=== PATIENT | female | born 1960 | race African-American/Black ===

== ENCOUNTER 2023-10-07 18:23 | Emergency (ER) | payer BC, SELFPAY ==
[2023-10-07 18:43] VITALS: BP 142/87; PULSE 101; RESP 20; TEMP 36.9; O2SAT 99
--- NOTE | 2023-10-07 19:11 | ED.ANIMALBIT ---
HPI - Animal Bite General Chief Complaint: Animal Bite Stated Complaint: Dog Bite Time Seen by Provider: 10/07/23 19:11 Source: patient, RN notes reviewed and old records reviewed Mode of arrival: ambulatory Limitations: no limitations History of Present Illness HPI narrative: 63-year-old female presents to the [facility] with concerns for a dog bite to the right thigh that occurred today. Patient reports that it was her sister's dog, animal is up-to-date on immunizations. Patient unsure of her last tetanus Related Data Patient tetanus UTD: No Home Medications Medication Instructions Recorded Confirmed ergocalciferol (vitamin D2) 1,250 10/07/23 mcg (50,000 unit) capsule meloxicam 15 mg tablet mg 10/07/23 terbinafine HCl 250 mg tablet mg 10/07/23 Allergies Allergy/AdvReac Type Severity Reaction Status Date / Time lansoprazole Allergy Unknown Verified 05/17/13 15:05 Review of Systems Review of Systems: All systems reviewed & are unremarkable except as noted in HPI and below Constitutional: Constitutional: Reports no additional constitutional complaints Eyes: Eyes: Reports no additional eye complaints ENT: Reports system reviewed and no additional complaints, except as documented Cardiovascular: Cardiovascular: Reports no additional cardiovascular complaints, Denies chest pain and Denies dyspnea Respiratory: Respiratory: Reports no additional respiratory complaints, Denies chest congestion, Denies cough and Denies dyspnea Gastrointestinal: Gastrointestinal: Reports no additional gastrointestinal complaints, Denies abdominal pain, Denies nausea and Denies vomiting Musculoskeletal: Musculoskeletal: Reports no additional musculoskeletal complaints Integumentary/Breasts: Skin/Breast: Reports as per HPI, Reports swelling and Reports wounds Neurologic: Reports system reviewed and no additional complaints, except as documented Psychiatric: Psychiatric: Reports no additional psychiatric complaints Allergic/Immunologic: Allergic/Immunologic: Reports no additional allergic/immunologic complaints PMFSH Comments At the time of my signature, I reviewed and agree with the nursing past medical, surgical, social, and family history. There is no relevant family history pertinent to the patient complaint. Exam Const: General: cooperative, healthy appearing, comfortable, no acute distress, well developed, alert and well nourished Nutritional Appearance: well nourished and obese Orientation/consciousness: patient oriented x3 Limitations: no limitations HENMT: Head: normal to inspection Ears: hearing grossly normal bilaterally and external ears normal Face/Nose/Sinus: Normal external nose present, Normal nares present, Normal nasal mucous membranes and turbinates present, normal facial exam and face symmetric Face and sinus: normal facial exam and face symmetric Eyes: General: appearance normal, both eyes and all related structures Alignment and Position: alignment normal Periorbital: periorbital findings normal Pupils: Equal, round and reactive pupils present EOM: EOMs intact bilaterally Neck: Neck: normal visual inspection, full ROM, no lymphadenopathy and no meningeal signs Chest: Chest palpation & inspection: normal inspection of the chest Resp: Effort & Inspection: normal respiratory effort and able to speak in complete sentences Cardio: Rate: regular rate Skin: General skin exam: normal color and no rashes or lesions noted Lesions: no lesions Rashes: no rashes Full body images: 1. 2 cm abrasion, superficial laceration 2. 1 cm puncture wound 3. Abrasion distal aspect 3rd finger right hand Neuro: General: patient oriented x3, gait normal, tone normal, moves all extremities and no meningeal signs Cranial nerves: Yes Equal, round and reactive pupils present Cognition (Neuro): normal cognition Speech: normal speech Gait exam (Neuro): Normal gait present Extrem: General: normal to inspection,
[2023-10-07] MEDS: TETANUS,DIPHTHERIA,AC PERTUSSIS ADULT (0.5 ML) BOOSTRIX IM (19:29)
== END 2023-10-07 19:45 | disposition home or self-care (01) ==
PROVIDERS: Emergency Provider Nurse Practitioner
DX: S70.311A Abrasion, right thigh, initial encounter (principal); S71.131A Puncture wound without foreign body, right thigh, initial encounter; W54.0XXA Bitten by dog, initial encounter; Z23 Encounter for immunization
CPT/HCPCS: 90471; 90715; 99203; G0463

== ENCOUNTER 2024-09-02 17:00 | Outpatient (CLI) | payer BC, SELFPAY ==
--- OUTSIDE RECORDS SUMMARY | 2024-09-02 17:06 | XMS_ITS | Encounter Summary ---
Author Organization [facility] Address [address] [place] [address] Care Team Providers Care Fire Alarm Operator Name Role Phone Tatyana Cardona DO Primary Care Provider Encounter Details Date Type Department Care Team (Late st Contact Info) Description 06/29/2004 Outpatient Historical HIS [facility] Fely Saavedra MD [address] [place] [address] ROUTINE MEDICAL EXAM (Primary Dx) Social History Tobacco Use Types Packs/Day Years Used Date Smoking Tobacco: Never Assessed Comments Unknown Sex and Gender Information Value Date Recorded Sex Assigned at Female 02/06/2023 4:09 PM GREENHOUSE OR NURSERY TRANSPLANTER Legal Sex Female 4:50 AM GREENHOUSE OR NURSERY TRANSPLANTER Gender Identity Female 02/06/2023 4:09 PM GREENHOUSE OR NURSERY TRANSPLANTER Sexual Orientation Straight 02/06/2023 4: 09 PM GREENHOUSE OR NURSERY TRANSPLANTER documented as of this encounter Plan of Treatment Upcoming Encounters Date Type Department Care Team (Late Contact Info) Description 02/18/2025 1:30 PM GREENHOUSE OR NURSERY TRANSPLANTER Appointment [facility] Family Medicine Jazz [place] [address] [facility] [address] [place] [address] [place] [address] [facility] [address] [place] [address] documented as of this encounter Procedures Procedure Name Priority Date/Time Associated Diagnosis Comments CBC WITH DIFFERENTIAL Routine 06/29/2004 10:49 AM CDT CBC WITH DIFFERENTIAL Routine 06/29/2004 10:49 AM CDT LIPID PANEL Routine 06/29/2004 10:49 AM CDT BASIC METABOLIC PANEL Routine 06/29/2004 10:49 AM CDT documented in this encounter Results * CBC WITH DIFFERENTIAL (06/29/2004 10:49 AM CDT) NEUTROPHILS 64 45 - 70 % INTERFAC E SYSTEM LYMPHOCYTES 23 16 - 45 % INTERFAC E SYSTEM MONOCYTES 9 3 - 13 % INTERFACE SYSTEM EOSINOPHILS 3 0 - 7 % INTERFAC E SYSTEM BASOPHILS 0 0 - 2 % INTERFACE SYSTEM NEUTROPHIL ABSOLUTE 5.31 1.90 - 7.00 K/uL INTERFACE SYSTEM LYMPHOCYTE ABSOLUTE 1.92 0.70 - 4.50 K/uL INTERFACE SYSTEM MONOCYTE ABSOLUTE 0.76 0.10 - 1.30 K/uL INTERFACE SYSTEM EOSINOPHIL ABSOLUTE 0.26 0.00 - 0.70 K/uL INTERFACE SYSTEM BASOPHILS ABSOLUTE 0.03 0.00 - 0.20 K/uL INTERFACE SYSTEM 06/29/2004 10:4 9 AM CDT us Fely Pinto MD HEMATOLOGY ORDERABLES Final R esult INTERFACE SYSTEM Refer to clinic/hospital department * CBC WITH DIFFERENTIAL (06/29/2004 10:49 AM CDT) WBC 8.3 4.0 - 9.8 K/uL INTERFACE SYSTEM RBC 4.60 3.90 - 4.90 M/uL INTERFACE SYSTEM HEMOGLOBIN 12.8 11.8 - 14.8 g/dL INTERFACE SYSTEM HEMATOCRIT 40.2 35.5 - 44.0 % INTERFACE SYSTEM MCV 87.4 82.0 - 99.0 fL INTERFACE SYSTEM MCH 27.8 27.2 - 32.6 pg INTERFACE SYSTEM MCHC 31.8 31.5 - 35.5 % INTERFACE SYSTEM RDW 14.5 11.5 - 14.5 % INTERFACE SYSTEM RDW-STDEV 46.1 37.1 - 48.7 fL INTERFACE SYSTEM PLATELETS 270 140 - 350 K/uL INTERFACE SYSTEM MPV 11.0 9.3 - 12.4 fL INTERFACE SYSTEM 06/29/2004 10:4 9 AM CDT us Fely Pinto MD HEMATOLOGY ORDERABLES Final R esult INTERFACE SYSTEM Refer to clinic/hospital department * LIPID PANEL (06/29/2004 10:49 AM CDT) CHOLESTEROL 159 100 - 199 mg/dL INTERFACE SYSTEM TRIGLYCERIDE 51 10 - 149 mg/dL INTERFACE SYSTEM HDL 58 40 - 59 mg/dL INTERFACE SYSTEM LDL CALCULATED 91 <=99 mg/dL INTERFACE SYSTEM CHOL/HDL RATIO 2.7 2.0 - 5.0 INTER FACE SYSTEM Comment:See interpretive belkys a section for risk classifications. LIPID PANEL COMMENT See below INTERFACE SYSTEM Comment: Adult ATP III Classifications: Cholesterol (mg/dL) Triglyceride (mg/dL) Desirable <200 Normal <150 Borderline 200 - 239 Borderline High 150 - 199 High >=240 High 200 - 499 Very High >=500 HDL Cholesterol (mg/dL) LDL (mg/dL) Low (increased risk) <40 Optimal <100 High (reduced risk) >=60 Near or above optimal 100 - 129 Borderline 130 - 159 High 160 - 189 Very High >=190 LDL calculation is not accurate if Triglycerides are greater than 400 mg /dL Pediatric NCEP Classifications: Cholesterol(<20 years),(mg/dL) Triglyceride Desirable <170 Pediatric classification Borderline 170 - 199 not defined. High >=200 HDL (<5 years) LDL (mg/dL) No Reference Range Established Desirable <110 Borderline 110 - 129 High >=130 06/29/2004 10:4 9 AM CDT us Fely Pinto MD CHEMISTRY ORDERABLES Final Re sult Performing Organization Address [facility] de Phone Number INTERFACE SYSTEM Refer to clinic/hospital department * BASIC METABOLIC PANEL (06/29/2004 10:49 AM CDT) GLUCOSE 90 65 - 109 mg/dL INTERFACE SYSTEM CREATININE 0.8 0.4 - 1.2 mg/dL INTERFACE SYSTEM CALCIUM 9.3 8.6 - 10.2 mg/dL INTERFACE SYSTEM BUN 7 6 - 20 mg/dL INTERFACE SYSTEM SODIUM 136 135 - 145 mmol/L INTERFACE SYSTEM POTASSIUM 3.9 3.5 - 4.9 mmol/L INTERFACE SYSTEM CHLORIDE 100 96 - 108 mmol/L INTERFACE SYSTEM CO2 27 22 - 30 mmol/L INTERFACE SYSTEM 06/29/2004 10:4 9 AM CDT us Fely Pinto MD CHEMISTRY ORDERABLES Final Re vamsi Performing Organization Address [facility] de Phone Number INTERFACE SYSTEM Refer to clinic/hospital department documented in this encounter Visit Diagnoses Diagnosis Routine general medical examination at a health care facility- Primary documented in this encounter Care Teams Fire Alarm Operator Relationship Specialty [place] [address] [facility] [address] [place] [address] PCP - General Family Practice 05/12/21 documented as of this encounter
--- OUTSIDE RECORDS SUMMARY | 2024-09-02 17:06 | XMS_ITS | Encounter Summary ---
Author Organization [facility] Address [address] [place] [address] Care Team Providers Care Montessori Preschool Teacher Name Role Phone Tatyana Cardona DO Primary Care Provider Encounter Details Date Type Department Care Team (Late st Contact Info) Description 09/18/2004 Outpatient Historical [facility] [place] [address] [place] [address] [place] [address] [place] [address] Social History Tobacco Use Types Packs/Day Years Used Date Smoking Tobacco: Never Assessed Comments Unknown Sex and Gender Information Value Date Recorded Sex Assigned at Female 02/06/2023 4:09 PM IDENTIFICATION CLERK Legal Sex Female 4:50 AM IDENTIFICATION CLERK Gender Identity Female 02/06/2023 4:09 PM IDENTIFICATION CLERK Sexual Orientation Straight 02/06/2023 4: 09 PM IDENTIFICATION CLERK documented as of this encounter Plan of Treatment Upcoming Encounters Date Type Department Care Team (Late st Contact Info) Description 02/18/2025 1:30 PM IDENTIFICATION CLERK Appointment [facility] Medicine [place] [address] [place] [address] [place] [address] [place] [address] documented as of this encounter Visit Diagnoses Not on filedocumented in this encounter Care Teams Montessori Preschool Teacher Relationship Specialty [place] [address] [facility] [address] [place] [address] PCP - General Family Practice 05/12/21 documented as of this encounter
--- OUTSIDE RECORDS SUMMARY | 2024-09-02 17:06 | XMS_ITS | Encounter Summary ---
Author Organization [facility] Address [address] [place] [address] Care Team Providers Care Whizzer Operator Name Role Phone Tatyana Cardona DO Primary Care Provider Encounter Details Date Type Department Care Team (Late st Contact Info) Description 09/18/2004 Outpatient Historical [facility] Jazz [place] [address] [place] [address] [place] [address] [place] [address] Social History Tobacco Use Types Packs/Day Years Used Date Smoking Tobacco: Never Assessed Comments Unknown Sex and Gender Information Value Date Recorded Sex Assigned at Female 02/06/2023 4:09 PM RECHECKER Legal Sex Female 4:50 AM RECHECKER Gender Identity Female 02/06/2023 4:09 PM RECHECKER Sexual Orientation Straight 02/06/2023 4: 09 PM RECHECKER documented as of this encounter Plan of Treatment Upcoming Encounters Date Type Department Care Team (Late st Contact Info) Description 02/18/2025 1:30 PM RECHECKER Appointment [facility] Medicine [place] [address] [place] [address] [place] [address] [place] [address] documented as of this encounter Visit Diagnoses Not on filedocumented in this encounter Care Teams Whizzer Operator Relationship Specialty [place] [address] [facility] [address] [place] [address] PCP - General Family Practice 05/12/21 documented as of this encounter
--- OUTSIDE RECORDS SUMMARY | 2024-09-02 17:06 | XMS_ITS | Encounter Summary ---
Author Organization [facility] Address [address] [place] [address] Care Team Providers Care Indirect Sales Representative Name Role Phone Tatyana Cardona DO Primary Care Provider Encounter Details Date Type Department Care Team (Late st Contact Info) Description 03/27/2004 Outpatient Historical [facility] Family Medicine [facility] [address] [facility] [address] [place] [address] [place] [address] [facility] [place] [address] Social History Tobacco Use Types Packs/Day Years Used Date Smoking Tobacco: Never Assessed Comments Unknown Sex and Gender Information Value Date Recorded Sex Assigned at Female 02/06/2023 4:09 PM WAREHOUSE CHECKER Legal Sex Female 4:50 AM WAREHOUSE CHECKER Gender Identity Female 02/06/2023 4:09 PM WAREHOUSE CHECKER Sexual Orientation Straight 02/06/2023 4: 09 PM WAREHOUSE CHECKER documented as of this encounter Last Filed Vital Signs Vital Sign Reading Time Taken Comments Blood Pressure 124/70 03/27/2004 4:30 PM WAREHOUSE CHECKER Pulse 80 03/27/2004 4:30 PM WAREHOUSE CHECKER Temperature - - Respiratory Rate - - Oxygen Saturation - - Inhaled Oxygen Concentration - - Weight 126.6 kg (279 lb) 03/27/2004 4:30 PM WAREHOUSE CHECKER Height 168.9 cm (5' 6.5) 03/27/2004 4:30 PM WAREHOUSE CHECKER Body Mass Index 44.36 03/27/2004 4:30 PM WAREHOUSE CHECKER documented in this encounter Plan of Treatment Upcoming Encounters Date Type Department Care Team (Late st Contact Info) Description 02/18/2025 1:30 PM WAREHOUSE CHECKER Appointment [facility] Medicine [place] [address] [facility] [address] [place] [address] [place] [address] [facility] [address] [place] [address] documented as of this encounter Visit Diagnoses Not on filedocumented in this encounter Care Teams Indirect Sales Representative Relationship Specialty Start [place] [address] [facility] [address] [place] [address] PCP - General Family Practice 05/12/21 documented as of this encounter
--- OUTSIDE RECORDS SUMMARY | 2024-09-02 17:07 | XMS_ITS | Encounter Summary ---
Author Organization [facility] Address [address] [place] [address] Care Team Providers Care Press Operator Automatic Name Role Phone Tatyana Cardona DO Primary Care Provider Encounter Details Date Type Department Care Team (Latest Contact Info) Description 07/16/2001 Outpatient Historical HIS [facility] KASIA Little, MD Tarsha NO ADDRESS ON FILE SCREENING FOR VENERAL DIS (Primary Dx) Social History Tobacco Use Types Packs/Day Years Used Date Smoking Tobacco: Never Assessed Comments Unknown Sex and Gender Information Value Date Recorded Sex Assigned at Female 02/06/2023 4:09 PM COPY CENTER ASSOCIATE Legal Sex Female 4:50 AM COPY CENTER ASSOCIATE Gender Identity Female 02/06/2023 4:09 PM COPY CENTER ASSOCIATE Sexual Orientation Straight 02/06/2023 4: 09 PM COPY CENTER ASSOCIATE documented as of this encounter Plan of Treatment Upcoming Encounters Date Type Department Care Team (Late st Contact Info) Description 02/18/2025 1:30 PM COPY CENTER ASSOCIATE Appointment [facility] Family Medicine Jazz [place] [address] [facility] [address] [place] [address] [place] [address] [address] [facility] [address] [place] [address] documented as of this encounter Visit Diagnoses Diagnosis Screening examination for venereal disease- Primary documented in this encounter Care Teams Press Operator Automatic Relationship Specialty [place] [address] [facility] [address] [place] [address] PCP - General Family Practice 05/12/21 documented as of this encounter
--- OUTSIDE RECORDS SUMMARY | 2024-09-02 17:07 | XMS_ITS | Encounter Summary ---
Author Organization [facility] Address [address] [place] [address] Care Team Providers Care Community Education Coordinator Name Role Phone Tatyana Cardona DO Primary Care Provider Encounter Details Date Type Department Care Team (Latest Contact Info) Description 07/21/2001 Outpatient Historical HIS [facility] KASIA Little, MD [place] NO ADDRESS ON FILE ABDOMINAL PAIN UNSPEC SITE (Primary Dx) Social History Tobacco Use Types Packs/Day Years Used Date Smoking Tobacco: Never Assessed Comments Unknown Sex and Gender Information Value Date Recorded Sex Assigned at Female 02/06/2023 4:09 PM LEAD MAN OVER ALL DIES IN PATTERN SHOP Legal Sex Female 4:50 AM LEAD MAN OVER ALL DIES IN PATTERN SHOP Gender Identity Female 02/06/2023 4:09 PM LEAD MAN OVER ALL DIES IN PATTERN SHOP Sexual Orientation Straight 02/06/2023 4: 09 PM LEAD MAN OVER ALL DIES IN PATTERN SHOP documented as of this encounter Plan of Treatment Upcoming Encounters Date Type Department Care Team (Late st Contact Info) Description 02/18/2025 1:30 PM LEAD MAN OVER ALL DIES IN PATTERN SHOP Appointment [facility] Family Medicine Jazz [place] [address] [facility] [address] [place] [address] [place] [address] [address] [facility] [address] [place] [address] documented as of this encounter Visit Diagnoses Diagnosis Abdominal pain, unspecified site- Primary documented in this encounter Care Teams Community Education Coordinator Relationship Specialty [place] [address] [facility] [address] [place] [address] PCP - General Family Practice 05/12/21 documented as of this encounter
--- OUTSIDE RECORDS SUMMARY | 2024-09-02 17:07 | XMS_ITS | Encounter Summary ---
Author Organization [facility] Address [address] [facility] Attn: Epic Prelude ADT DEWAYNE ACOSTA [address] Care Team Providers Care Student Services Counselor Name Role Phone Tatyana Cardona DO Primary Care Provider Encounter Details Date Type Department Care Team (Latest Contact Info) Description 05/28/2005 Orders Only Fely Pinto MD [address] [place] [address] Social History Tobacco Use Types Packs/Day Years Used Date Smoking Tobacco: Never Assessed Comments Unknown Sex and Gender Information Value Date Recorded Sex Assigned at Female 02/06/2023 4:09 PM AUSTRALIAN RULES FOOTBALLER Legal Sex Female 4:50 AM AUSTRALIAN RULES FOOTBALLER Gender Identity Female 02/06/2023 4:09 PM AUSTRALIAN RULES FOOTBALLER Sexual Orientation Straight 02/06/2023 4: 09 PM AUSTRALIAN RULES FOOTBALLER documented as of this encounter Progress Notes * Interface, Suresh Pennington Conv Transcriptions - 11/21/2007 1:31 AM CDT TIME:01:47 pm PATIENT`S HOME PHONE: PATIENT`S WORK PHONE: PATIENT`S INSURANCE: [facility] B[employer]EFIT ADMINISTRATORS WHO TOOK THE CALL: Laura Hahn A GENERAL INFORMATION PCP: Blair. ALTERNATIVE PHONE NUMBER: [phone] (cell) WHO CALLED: Patient called. PHARMACY NUMBER: [phone] SECTION 1: REQUESTED ACTION neri 05/28/05 at 01:48 pm: MEDICATION REQUEST: Would like a script for Patanol for allergies, take Zyrtec-D DOCTOR`S RESPONSE: jayjay 05/28/05 at 02:20 pm Juanita - please call this in and let pt know. Thanks. -lks MEDICATIONS: Call in to Pharmacy ZYRTEC-D ORAL TABLET 12 HR 5-120 MG TABLETS, one twice a day from processing specialist, 30 Dispensed, 2 Fills,30 Duration/Days Supply, status: CONTINUED, 05/28/2005. PATANOL OPHTHALMIC SOLUTION 0.1 %, 1-2 gtt per eye BID PRN, 1 Dispensed, 2 Fills, 30 Duration/Days Supply, status: NEW PRESCRIPTION, 05/28/2005. FINAL ACTION: anna 05/28/05 at 02:45 pm Spoke with patient 05/28/05 at 02:46 pm. kyle Mariee Called pharmacy at 05/28/05 at 02:45 pm. Electronically Signed by: Jaylene Hazel MA on Saturday, May 28, 2005 documented in this encounter Plan of Treatment Upcoming Encounters Date Type Department Care Team (Late st Contact Info) Description 02/18/2025 1:30 PM AUSTRALIAN RULES FOOTBALLER Appointment [facility] Medicine Jazz Erwin [address] [address] [facility] [address] [place] [address] [place] [address] [address] [facility] [address] [place] [address] documented as of this encounter Visit Diagnoses Not on filedocumented in this encounter Care Teams Student Services Counselor Relationship Specialty Start [place] [address] [address] [place] [address] PCP - General Family Practice 05/12/21 documented as of this encounter
--- OUTSIDE RECORDS SUMMARY | 2024-09-02 17:07 | XMS_ITS | Encounter Summary ---
Author Organization [facility] Address [address] [place] [address] Care Team Providers Care Laser Print Operator Name Role Phone Tatyana Cardona DO Primary Care Provider Encounter Details Date Type Department Care Team (Latest Contact Info) Description 07/23/2000 Outpatient Historical HIS [facility] KASIA Little, MD [place] NO ADDRESS ON FILE Other screening mammogram (Primary Dx) Social History Tobacco Use Types Packs/Day Years Used Date Smoking Tobacco: Never Assessed Comments Unknown Sex and Gender Information Value Date Recorded Sex Assigned at Female 02/06/2023 4:09 PM RESPIRATORY CARE INSTRUCTOR Legal Sex Female 4:50 AM RESPIRATORY CARE INSTRUCTOR Gender Identity Female 02/06/2023 4:09 PM RESPIRATORY CARE INSTRUCTOR Sexual Orientation Straight 02/06/2023 4: 09 PM RESPIRATORY CARE INSTRUCTOR documented as of this encounter Plan of Treatment Upcoming Encounters Date Type Department Care Team (Late st Contact Info) Description 02/18/2025 1:30 PM RESPIRATORY CARE INSTRUCTOR Appointment [facility] Family Medicine Jazz [place] [address] [facility] [address] [place] [address] [place] [address] ASSURED INFORMATION SECURITY [facility] [address] [place] [address] documented as of this encounter Visit Diagnoses Diagnosis Other screening mammogram- Primary documented in this encounter Care Teams Laser Print Operator Relationship Specialty Start [place] [address] [facility] [address] [place] [address] PCP - General Family Practice 05/12/21 documented as of this encounter
--- OUTSIDE RECORDS SUMMARY | 2024-09-02 17:07 | XMS_ITS | Encounter Summary ---
Author Organization [facility] Address [address] [place] [address] Care Team Providers Care Extension Course Counselor Name Role Phone Tatyana Cardona DO Primary Care Provider Encounter Details Date Type Department Care Team (Late st Contact Info) Description 03/02/2003 Outpatient Historical [facility] Medicine Jazz Hood [address] [place] [address] Balwinder Venegas Social History Tobacco Use Types Packs/Day Years Used Date Smoking Tobacco: Never Assessed Comments Unknown Sex and Gender Information Value Date Recorded Sex Assigned at Female 02/06/2023 4:09 PM STONE HAND Legal Sex Female 4:50 AM STONE HAND Gender Identity Female 02/06/2023 4:09 PM STONE HAND Sexual Orientation Straight 02/06/2023 4: 09 PM STONE HAND documented as of this encounter Plan of Treatment Upcoming Encounters Date Type Department Care Team (Late st Contact Info) Description 02/18/2025 1:30 PM STONE HAND Appointment [facility] Medicine Jazz Hood [address] [place] [address] [place] [address] [place] [address] documented as of this encounter Visit Diagnoses Not on filedocumented in this encounter Care Teams Extension Course Counselor Relationship Specialty [place] [address] [facility] [address] [place] [address] PCP - General Family Practice 05/12/21 documented as of this encounter
--- OUTSIDE RECORDS SUMMARY | 2024-09-02 17:07 | XMS_ITS | Encounter Summary ---
Author Organization [facility] Address [address] [place] [address] Care Team Providers Care Manager Strategic Alliances Name Role Phone Tatyana Cardona DO Primary Care Provider Encounter Details Date Type Department Care Team (Late st Contact Info) Description 03/05/2002 Outpatient Historical [facility] Medicine Kimmell Erwin [address] [place] [address] [place] [address] [place] [address] Social History Tobacco Use Types Packs/Day Years Used Date Smoking Tobacco: Never Assessed Comments Unknown Sex and Gender Information Value Date Recorded Sex Assigned at Female 02/06/2023 4:09 PM HOSPITALIST NOCTURNIST PHYSICIAN Legal Sex Female 4:50 AM HOSPITALIST NOCTURNIST PHYSICIAN Gender Identity Female 02/06/2023 4:09 PM HOSPITALIST NOCTURNIST PHYSICIAN Sexual Orientation Straight 02/06/2023 4: 09 PM HOSPITALIST NOCTURNIST PHYSICIAN documented as of this encounter Plan of Treatment Upcoming Encounters Date Type Department Care Team (Late st Contact Info) Description 02/18/2025 1:30 PM HOSPITALIST NOCTURNIST PHYSICIAN Appointment [facility] Medicine Kimmell Erwin [address] [place] [address] [place] [address] [facility] [address] [place] [phone] documented as of this encounter Visit Diagnoses Not on filedocumented in this encounter Care Teams Manager Strategic Alliances Relationship Specialty Start [place] [address] [facility] [address] [place] [address] PCP - General Family Practice 05/12/21 documented as of this encounter
--- OUTSIDE RECORDS SUMMARY | 2024-09-02 17:07 | XMS_ITS | Encounter Summary ---
Author Organization [facility] Address [address] [place] [address] Care Team Providers Care Golf Cart Attendant Name Role Phone Tatyana Cardona DO Primary Care Provider Encounter Details Date Type Department Care Team (Late st Contact Info) Description 10/01/2002 Outpatient Historical [facility] Medicine [facility] [address] [facility] [address] [place] [address] [place] [address] [place] [address] Social History Tobacco Use Types Packs/Day Years Used Date Smoking Tobacco: Never Assessed Comments Unknown Sex and Gender Information Value Date Recorded Sex Assigned at Female 02/06/2023 4:09 PM TROUBLE LOCATER Legal Sex Female 4:50 AM TROUBLE LOCATER Gender Identity Female 02/06/2023 4:09 PM TROUBLE LOCATER Sexual Orientation Straight 02/06/2023 4: 09 PM TROUBLE LOCATER documented as of this encounter Plan of Treatment Upcoming Encounters Date Type Department Care Team (Late Contact Info) Description 02/18/2025 1:30 PM TROUBLE LOCATER Appointment [facility] [address] [place] [address] [place] [address] [facility] [address] [place] [address] documented as of this encounter Visit Diagnoses Not on filedocumented in this encounter Care Teams Golf Cart Attendant Relationship Specialty [place] [address] [facility] [address] [place] [address] PCP - General Family Practice 05/12/21 documented as of this encounter
--- OUTSIDE RECORDS SUMMARY | 2024-09-02 17:07 | XMS_ITS | Encounter Summary ---
Author Organization [facility] Address [address] [place] [address] Care Team Providers Care Cut In Station Operator Name Role Phone Tatyana Cardona DO Primary Care Provider [phone] Encounter Details Date Type Department Care Team (Latest Contact Info) Description 08/22/2006 Outpatient Historical [facility] Chip Zaragoza MD Calculus of GB w/ Acute Cyst (Primary Dx) Social History Tobacco Use Types Packs/Day Years Used Date Smoking Tobacco: Never Assessed Comments Unknown Sex and Gender Information Value Date Recorded Sex Assigned at Female 02/06/2023 4:09 PM REPRODUCTION ORDER PROCESSOR Legal Sex Female 4:50 AM REPRODUCTION ORDER PROCESSOR Gender Identity Female 02/06/2023 4:09 PM REPRODUCTION ORDER PROCESSOR Sexual Orientation Straight 02/06/2023 4: 09 PM REPRODUCTION ORDER PROCESSOR documented as of this encounter Plan of Treatment Upcoming Encounters Date Type Department Care Team (Late st Contact Info) Description 02/18/2025 1:30 PM REPRODUCTION ORDER PROCESSOR Appointment [facility] Family Medicine Jazz Hood [address] [facility] [address] [place] [address] [place] [address] [address] [facility] [address] [place] [address] documented as of this encounter Procedures Procedure Name Priority Date/Time Associated Diagnosis Comments HCG QUANTITATIVE, BLOOD Routine 08/22/2006 11:16 AM CDT HEMOGLOBIN AND HEMATOCRIT Routine 08/21/2006 1:30 PM CDT documented in this encounter Results * BETA HCG QUANTITATIVE, BLOOD (08/22/2006 11:16 AM CDT) HCG QUANT, BLOOD <5 0 - 5 mIU/mL INTERFACE SYSTEM Comment: Result of 5 - 25 mIU/mL is indeterminant for , repeat of test recommemded in 48 hours. Reference Range: Gestational Age: 3 Weeks 5.8 - 71.2 mIU/mL 4 Weeks 9.5 - 750 mIU/mL 5 Weeks 217 - 7138 mIU/mL 6 Weeks 158 - 31,795 mIU/mL 7 Weeks 3697 - 163,563 mIU/mL 8 Weeks 32,065 - 149,571 mIU/mL 9 Weeks 63,803 - 151,410 mIU/mL 10 Weeks 46,509 - 186,977 mIU/mL 12 Weeks 27,832 - 210,612 mIU/mL 14 Weeks 13,950 - 62,530 mIU/mL 15 Weeks 12,039 - 70,971 mIU/mL 16 Weeks 9040 - 56,451 mIU/mL 17 Weeks 8175 - 55,868 mIU/mL 18 Weeks 8099 - 58,176 mIU/mL Heterophile antibodies and other interfering substances in the serum of some patients may cause a false-positive result in this assay. Before making a diagnosis of malignancy or etopic ,the result of this test should be confirmed with a urine HCG test and correlated with other clinical evidence. 08/22/2006 11:1 6 AM CDT us Chip Zaragoza MD CHEMISTRY ORDERABLES Edited INTERFACE SYSTEM Refer to clinic/hospital department * HEMOGLOBIN AND HEMATOCRIT (08/21/2006 1:30 PM CDT) HEMOGLOBIN 13.4 11.8 - 14.8 g/dL INTERFACE SYSTEM HEMATOCRIT 39.5 35.5 - 44.0 % INTERFACE SYSTEM 08/21/2006 1:30 PM CDT us Chip Zaragoza MD HEMATOLOGY ORDERABLES Edited INTERFACE SYSTEM Refer to clinic/hospital department documented in this encounter Visit Diagnoses Diagnosis Calculus of gallbladder with acute cholecystitis, without mention of obstruction- Primary documented in this encounter Care Teams Cut In Station Operator Relationship Specialty [place] [address] [facility] [address] [place] [address] PCP - General Family Practice 05/12/21 documented as of this encounter
--- OUTSIDE RECORDS SUMMARY | 2024-09-02 17:07 | XMS_ITS | Encounter Summary ---
Author Organization [facility] Address [address] [place] [address] Care Team Providers Care Vp Packaging Name Role Phone Tatyana Cardona DO Primary Care Provider Encounter Details Date Type Department Care Team (Late st Contact Info) Description 10/03/2001 Outpatient Historical [facility] DEPT OF [place] [address] [place] [address] Social History Tobacco Use Types Packs/Day Years Used Date Smoking Tobacco: Never Assessed Comments Unknown Sex and Gender Information Value Date Recorded Sex Assigned at Female 02/06/2023 4:09 PM MOBILE APPLICATION TESTER Legal Sex Female 4:50 AM MOBILE APPLICATION TESTER Gender Identity Female 02/06/2023 4:09 PM MOBILE APPLICATION TESTER Sexual Orientation Straight 02/06/2023 4: 09 PM MOBILE APPLICATION TESTER documented as of this encounter Plan of Treatment Upcoming Encounters Date Type Department Care Team (Late st Contact Info) Description 02/18/2025 1:30 PM MOBILE APPLICATION TESTER Appointment [facility] Family Medicine Jazz Hood [address] [place] [address] [place] [address] [place] [address] documented as of this encounter Visit Diagnoses Not on filedocumented in this encounter Care Teams Vp Packaging Relationship Specialty [place] [address] [address] PCP - General Family Practice 05/12/21 documented as of this encounter
--- OUTSIDE RECORDS SUMMARY | 2024-09-02 17:07 | XMS_ITS | Encounter Summary ---
Author Organization [facility] Address [address] [place] [address] Care Team Providers Care Lace Burn Out Tender Name Role Phone Tatyana Cardona DO Primary Care Provider Encounter Details Date Type Department Care Team (Late st Contact Info) Description 05/23/[address] [facility] [place] [address] [place] [address] [place] [address] [place] [address] Social History Tobacco Use Types Packs/Day Years Used Date Smoking Tobacco: Never Assessed Comments Unknown Sex and Gender Information Value Date Recorded Sex Assigned at Female 02/06/2023 4:09 PM OPERATING ROOM MANAGER Legal Sex Female 4:50 AM OPERATING ROOM MANAGER Gender Identity Female 02/06/2023 4:09 PM OPERATING ROOM MANAGER Sexual Orientation Straight 02/06/2023 4: 09 PM OPERATING ROOM MANAGER documented as of this encounter Plan of Treatment Upcoming Encounters Date Type Department Care Team (Late st Contact Info) Description 02/18/2025 1:30 PM OPERATING ROOM MANAGER Appointment [facility] Medicine [place] Erwin [address] [place] [address] [place] [address] [place] [address] documented as of this encounter Visit Diagnoses Not on filedocumented in this encounter Care Teams Lace Burn Out Tender Relationship Specialty [place] [address] [address] [facility] [address] [place] [address] PCP - General Family Practice 05/12/21 documented as of this encounter
--- OUTSIDE RECORDS SUMMARY | 2024-09-02 17:07 | XMS_ITS | Encounter Summary ---
Author Organization [facility] Address [address] [place] [address] Care Team Providers Care Valve Inspector Name Role Phone Tatyana Cardona DO Primary Care Provider Encounter Details Date Type Department Care Team (Latest Contact Info) Description 08/15/2001 Outpatient Historical [facility] KASIA Little, MD Tarsha NO ADDRESS ON FILE SCREENING MAMM-MAILG NEOPL-OTHER (Primary Dx) Social History Tobacco Use Types Packs/Day Years Used Date Smoking Tobacco: Never Assessed Comments Unknown Sex and Gender Information Value Date Recorded Sex Assigned at Female 02/06/2023 4:09 PM PREFORM MACHINE OPERATOR Legal Sex Female 4:50 AM PREFORM MACHINE OPERATOR Gender Identity Female 02/06/2023 4:09 PM PREFORM MACHINE OPERATOR Sexual Orientation Straight 02/06/2023 4: 09 PM PREFORM MACHINE OPERATOR documented as of this encounter Plan of Treatment Upcoming Encounters Date Type Department Care Team (Late st Contact Info) Description 02/18/2025 1:30 PM PREFORM MACHINE OPERATOR Appointment [facility] Family Medicine Jazz Hood [address] [facility] [address] [place] [address] [place] [address] [address] [facility] [address] [place] [address] documented as of this encounter Visit Diagnoses Diagnosis Other screening mammogram- Primary documented in this encounter Care Teams Valve Inspector Relationship Specialty [place] [address] [facility] [address] [place] [address] PCP - General Family Practice 05/12/21 documented as of this encounter
--- OUTSIDE RECORDS SUMMARY | 2024-09-02 17:07 | XMS_ITS | Encounter Summary ---
Author Organization [facility] Address [address] [place] [address] Care Team Providers Care Food Checkers And Cashiers Supervisor Name Role Phone Tatyana Cardona DO Primary Care Provider [phone] Encounter Details Date Type Department Care Team (Late st Contact Info) Description 07/16/2001 Outpatient Historical [facility] DEPT OF [place] [address] [place] [address] Social History Tobacco Use Types Packs/Day Years Used Date Smoking Tobacco: Never Assessed Comments Unknown Sex and Gender Information Value Date Recorded Sex Assigned at Female 02/06/2023 4:09 PM ASSISTANT ATHLETIC TRAINER Legal Sex Female 4:50 AM ASSISTANT ATHLETIC TRAINER Gender Identity Female 02/06/2023 4:09 PM ASSISTANT ATHLETIC TRAINER Sexual Orientation Straight 02/06/2023 4: 09 PM ASSISTANT ATHLETIC TRAINER documented as of this encounter Plan of Treatment Upcoming Encounters Date Type Department Care Team (Late st Contact Info) Description 02/18/2025 1:30 PM ASSISTANT ATHLETIC TRAINER Appointment [facility] Family Medicine Jazz Hood [address] [facility] [address] [place] [address] [place] [address] [facility] [address] [place] [address] documented as of this encounter Visit Diagnoses Not on filedocumented in this encounter Care Teams Food Checkers And Cashiers Supervisor Relationship Specialty [place] [address] [address] PCP - General Family Practice 05/12/21 documented as of this encounter
--- OUTSIDE RECORDS SUMMARY | 2024-09-02 17:07 | XMS_ITS | Encounter Summary ---
Author Organization [facility] Address [address] [place] [address] Care Team Providers Care Groundwater Consultant Name Role Phone Tatyana Cardona DO Primary Care Provider Encounter Details Date Type Department Care Team (Late st Contact Info) Description 07/08/2006 Outpatient Historical [facility] Priti Mahmood MD [address] [facility] [place] [address] Social History Tobacco Use Types Packs/Day Years Used Date Smoking Tobacco: Never Assessed Comments Unknown Sex and Gender Information Value Date Recorded Sex Assigned at Female 02/06/2023 4:09 PM BUYING INTERN Legal Sex Female 4:50 AM BUYING INTERN Gender Identity Female 02/06/2023 4:09 PM BUYING INTERN Sexual Orientation Straight 02/06/2023 4: 09 PM BUYING INTERN documented as of this encounter Plan of Treatment Upcoming Encounters Date Type Department Care Team (Late st Contact Info) Description 02/18/2025 1:30 PM BUYING INTERN Appointment [facility] Family Medicine Jazz Hood [address] [facility] [address] [place] [address] [place] [address] [address] [facility] [address] [place] [address] documented as of this encounter Visit Diagnoses Not on filedocumented in this encounter Care Teams Groundwater Consultant Relationship Specialty [place] [address] [address] PCP - General Family Practice 05/12/21 documented as of this encounter
--- OUTSIDE RECORDS SUMMARY | 2024-09-02 17:07 | XMS_ITS | Encounter Summary ---
Author Organization [facility] Address [address] [place] [address] Care Team Providers Care General Maintenance Helper Name Role Phone Tatyana Cardona DO Primary Care Provider Encounter Details Date Type Department Care Team (Late st Contact Info) Description 05/23/2006 Outpatient Historical [facility] [place] [address] [place] [address] [place] [address] [place] [address] Social History Tobacco Use Types Packs/Day Years Used Date Smoking Tobacco: Never Assessed Comments Unknown Sex and Gender Information Value Date Recorded Sex Assigned at Female 02/06/2023 4:09 PM FINANCIAL SALES ASSOCIATE Legal Sex Female 4:50 AM FINANCIAL SALES ASSOCIATE Gender Identity Female 02/06/2023 4:09 PM FINANCIAL SALES ASSOCIATE Sexual Orientation Straight 02/06/2023 4: 09 PM FINANCIAL SALES ASSOCIATE documented as of this encounter Plan of Treatment Upcoming Encounters Date Type Department Care Team (Late st Contact Info) Description 02/18/2025 1:30 PM FINANCIAL SALES ASSOCIATE Appointment [facility] Medicine [place] [address] [place] [address] [place] [address] [place] [address] documented as of this encounter Visit Diagnoses Not on filedocumented in this encounter Care Teams General Maintenance Helper Relationship Specialty Start [place] [address] [address] [facility] [address] [place] [address] PCP - General Family Practice 05/12/21 documented as of this encounter
--- OUTSIDE RECORDS SUMMARY | 2024-09-02 17:07 | XMS_ITS | Encounter Summary ---
Author Organization [facility] Address [address] [place] [address] Care Team Providers Care Associate Professor Of Philosophy Name Role Phone Tatyana Cardona DO Primary Care Provider Encounter Details Date Type Department Care Team (Late st Contact Info) Description 05/31/2006 Outpatient Historical [facility] [address] [facility] [place] [address] Calculus of GB w/o Cystitis/Obst (Primary Dx) Social History Tobacco Use Types Packs/Day Years Used Date Smoking Tobacco: Never Assessed Comments Unknown Sex and Gender Information Value Date Recorded Sex Assigned at Female 02/06/2023 4:09 PM SEO ASSOCIATE Legal Sex Female 4:50 AM SEO ASSOCIATE Gender Identity Female 02/06/2023 4:09 PM SEO ASSOCIATE Sexual Orientation Straight 02/06/2023 4: 09 PM SEO ASSOCIATE documented as of this encounter Plan of Treatment Upcoming Encounters Date Type Department Care Team (Late st Contact Info) Description 02/18/2025 1:30 PM SEO ASSOCIATE Appointment [facility] Medicine Jazz Hood [address] [facility] [address] [place] [address] [place] [address] [employer] [facility] [address] [place] [address] documented as of this encounter Visit Diagnoses Diagnosis Calculus of gallbladder without mention of cholecystitis or obstruction- Primary documented in this encounter Care Teams Associate Professor Of Philosophy Relationship Specialty [place] [address] [facility] [address] [place] [address] PCP - General Family Practice 05/12/21 documented as of this encounter
--- OUTSIDE RECORDS SUMMARY | 2024-09-02 17:07 | XMS_ITS | Encounter Summary ---
Author Organization [facility] Address [address] [place] [address] Care Team Providers Care Concrete Stone Fabricating Supervisor Name Role Phone Tatyana Cardona DO Primary Care Provider [phone] Encounter Details Date Type Department Care Team (Late st Contact Info) Description 09/20/2003 Outpatient Historical [facility] Medicine [facility] [address] [address] [facility] [address] [place] [address] [place] [address] [address] [place] [address] Social History Tobacco Use Types Packs/Day Years Used Date Smoking Tobacco: Never Assessed Comments Unknown Sex and Gender Information Value Date Recorded Sex Assigned at Female 02/06/2023 4:09 PM SERVICE UNIT OPERATOR Legal Sex Female 4:50 AM SERVICE UNIT OPERATOR Gender Identity Female 02/06/2023 4:09 PM SERVICE UNIT OPERATOR Sexual Orientation Straight 02/06/2023 4: 09 PM SERVICE UNIT OPERATOR documented as of this encounter Plan of Treatment Upcoming Encounters Date Type Department Care Team (Late Contact Info) Description 02/18/2025 1:30 PM SERVICE UNIT OPERATOR Appointment [facility] [address] [place] [address] [place] [address] [facility] [address] [place] [address] documented as of this encounter Visit Diagnoses Not on filedocumented in this encounter Care Teams Concrete Stone Fabricating Supervisor Relationship Specialty [place] [address] [facility] [address] [place] [address] PCP - General Family Practice 05/12/21 documented as of this encounter
--- OUTSIDE RECORDS SUMMARY | 2024-09-02 17:07 | XMS_ITS | Encounter Summary ---
Author Organization [facility] Address [address] [place] [address] Care Team Providers Care Sales Performance Analyst Name Role Phone Tatyana Cardona DO Primary Care Provider Encounter Details Date Type Department Care Team (Late st Contact Info) Description 07/16/2001 Outpatient Historical [facility] KASIA Little, MD Tarsha NO ADDRESS ON FILE Social History Tobacco Use Types Packs/Day Years Used Date Smoking Tobacco: Never Assessed Comments Unknown Sex and Gender Information Value Date Recorded Sex Assigned at Female 02/06/2023 4:09 PM CELLOPHANER Legal Sex Female 4:50 AM CELLOPHANER Gender Identity Female 02/06/2023 4:09 PM CELLOPHANER Sexual Orientation Straight 02/06/2023 4: 09 PM CELLOPHANER documented as of this encounter Plan of Treatment Upcoming Encounters Date Type Department Care Team (Late st Contact Info) Description 02/18/2025 1:30 PM CELLOPHANER Appointment [facility] Medicine Jazz Hood [address] [facility] [address] [place] [address] [place] [address] [address] [facility] [address] [place] [address] documented as of this encounter Visit Diagnoses Not on filedocumented in this encounter Care Teams Sales Performance Analyst Relationship Specialty Start [place] [address] [facility] [address] [place] [address] PCP - General Family Practice 05/12/21 documented as of this encounter
--- OUTSIDE RECORDS SUMMARY | 2024-09-02 17:07 | XMS_ITS | Encounter Summary ---
Author Organization [facility] Address [address] [place] [address] Care Team Providers Care Crime Scene Technician Name Role Phone Tatyana Cardona DO Primary Care Provider Encounter Details Date Type Department Care Team (Late st Contact Info) Description 05/20/2001 Outpatient Historical HIS [facility] DEPT OF [place] [address] [place] [address] Social History Tobacco Use Types Packs/Day Years Used Date Smoking Tobacco: Never Assessed Comments Unknown Sex and Gender Information Value Date Recorded Sex Assigned at Female 02/06/2023 4:09 PM ORTHOPAEDIC TECHNOLOGIST Legal Sex Female 4:50 AM ORTHOPAEDIC TECHNOLOGIST Gender Identity Female 02/06/2023 4:09 PM ORTHOPAEDIC TECHNOLOGIST Sexual Orientation Straight 02/06/2023 4: 09 PM ORTHOPAEDIC TECHNOLOGIST documented as of this encounter Plan of Treatment Upcoming Encounters Date Type Department Care Team (Late st Contact Info) Description 02/18/2025 1:30 PM ORTHOPAEDIC TECHNOLOGIST Appointment [facility] Family Medicine [place] [address] [place] [address] [place] [address] [address] [place] [address] documented as of this encounter Visit Diagnoses Not on filedocumented in this encounter Care Teams Crime Scene Technician Relationship Specialty [place] [address] [address] PCP - General Family Practice 05/12/21 documented as of this encounter
--- OUTSIDE RECORDS SUMMARY | 2024-09-02 17:07 | XMS_ITS | Encounter Summary ---
Author Organization [facility] Address [address] Attn: Epic Prelude ADT [place] [address] Care Team Providers Care Drafter Marine Name Role Phone RomariocathyTatyana DO Primary Care Provider [phone] Encounter Details Date Type Department Care Team (Latest Contact Info) Description 05/23/2006 Orders Only Priti Mahmood MD [address] [facility] EMERGENCY ROOM [place] [address] Social History Tobacco Use Types Packs/Day Years Used Date Smoking Tobacco: Never Assessed Comments Unknown Sex and Gender Information Value Date Recorded Sex Assigned at Female 02/06/2023 4:09 PM PHOTOGRAVURE PRESS OPERATOR Legal Sex Female 4:50 AM PHOTOGRAVURE PRESS OPERATOR Gender Identity Female 02/06/2023 4:09 PM PHOTOGRAVURE PRESS OPERATOR Sexual Orientation Straight 02/06/2023 4: 09 PM PHOTOGRAVURE PRESS OPERATOR documented as of this encounter Progress Notes * Priti Mahmood MD - 07/03/2007 2:55 PM CDT NURSE NAME: Del Cruz C WEIGHT: 282lbs. BLOOD PRESSURE: 112/68. Right Arm Sitting PULSE: 85. Right Radial, Regular TEMPERATURE: 97.9??f. Oral HEIGHT: 5ft7 1/4in. ALLERGIES: Allergies are as listed. CHIEF COMPLAINT Seen for a preventive examination. Sindhu HISTORY: Here for hmv.. lmp may 01. Concerned about dysuria for one day, denies vaginal dc. Also concerned about chronic knee pain in the left knee. Pain is dull, achy, moderate and worse when she sits for a long period of time. At that point the knee feels stiff. CURRENT MEDICATION LIST: LIDEX-E EXTERNAL CREAME 0.05 %, APPLY TWICE DAILY ALBUTEROL INHALATION AEROSOL SOLUTION 90 MCG/ACT, From sewing machine repairer SINGULAIR ORAL TABLET 10 MG, one a day from sewing machine repairer NECON (28) ORAL TABLET 1-35 MG-MCG, one per day from Dr. Garcia FLONASE NASAL SUSPENSION 50 MCG/ACT, May substitute another nasal steroid with a lower copay one puff in each nostril once a day ZYRTEC-D ORAL TABLET 12 HR 5-120 MG, one twice a day from sewing machine repairer PATANOL OPHTHALMIC SOLUTION 0.1 %, 1-2 gtt per eye BID PRN CLOBETASOL PROPIONATE EXTERNAL SOLUTION 0.05 %, as per derm CURRENT ALLERGY LIST: PREVACID ROS: GENERAL: Normal activity and energy level, no change in appetite. No major weight gain or loss. No malaise, chills, fever, diaphoresis.. ENT: No hearing loss, epistaxis, hoarseness or dysphagia. No sinus congestion.. ENDOCRINE: No heat or cold intolerance, no excessive thirst.. CARDIAC: No chest pain, palpitations, orthopnea, dyspnea on exertion, or paroxysmal nocturnal dyspnea.. RESPIRATORY: No dyspnea, cough, hemoptysis or wheezing.. : No frequency, urgency, hematuria or dysuria.. GI: . ruq abd pain occasionally, has previous diagnosis of gallstones. PAST MEDICAL HISTORY: MEDICAL: Pt states gallstones since 2003, no gb surgery CURRENT MEDICATIONS: Patient is currently on no medication.zyrtec d, singulair, necon, albuteol- uses once, per week, MVI FAMILY HISTORY: MOTHER: Illnesses: Diabetes, hypertension. SOCIAL HISTORY: MARITAL HISTORY: Single. TOBACCO USE: Has no significant smoking history. OCCUPATION: Teacher. EXERCISES: The patient exercises. just started curves DIET: Follows a weight reduction diet, low carbohydrate. PHYSICAL EXAMINATION: CONSTITUTIONAL: GENERAL APPEARANCE: Healthy appearing patient in no distress. EYES: CONJUNCTIVAE/LIDS: Conjunctivae and lids appear normal. EARS, NOSE, MOUTH AND THROAT: EARS: Tympanic membranes shiny without retraction. Canals unremarkable. Hearing grossly normal. NOSE (AND SINUS): No abnormality of the nose or sinuses is noted. ORAL: Inspection of gums, lips, palate, and teeth normal. No scars, lesions, or masses. Oral mucosaunremarkable with non-inflamed posterior pharynx. NECK/THYROID: Trachea midline. No thyroid enlargement, tenderness, or mass. No supraclavicular or cervical adenopathy. RESPIRATORY: Clear to auscultation and percussion. Normal respiratory effort. CARDIOVASCULAR: CARDIAC: Regular rhythm. No murmurs, rubs, or gallops. ARTERIAL: No aortic bruits. EDEMA/VARICOSITIES OF EXTREMITIES: No edema or varicosities. GASTROINTESTINAL: ABDOMEN: Soft, non-tender, without masses. Bowel sounds active. LIVER/SPLEEN/KIDNEY: No hepatosplenomegaly, tenderness or nodularity. Kidneys not palpable. MUSCULOSKELETAL EXAM: EXTREMITIES: LEFT LOWER EXTREMITY: No misalignment or tenderness. Full range of motion. Normal stability, strength and tone. normal gait, nontender on palpation neg patellar apprehension, normal rom but some painwith movement HEALTH MAINTENANCE: LAST BREAST EXAM DATE: 08/16. LAST DATE PELVIC EXAM: 08/16. LAST MAMMOGRAM DATE: 09/16. DISCUSSED SMOKING: +. LAST TD: 2001 OFFICE PROCEDURES: URINALYSIS RESULTS WBC: WBC`s were negative. NITRITE: nitrites were negative. UROBILINOGEN urobilinogen was normal. PROTEIN: protein was trace. pH: . U/A BLOOD: blood was non-hem trace. SPECIFIC GRAVITY: specific gravity was 1.020. KETONES: ketones were negative. BILIRUBIN: bilirubin was negative. GLUCOSE: glucose was negative. ASSESSMENT/PLAN: 574.20-CHOLELITHIASIS ASSESSMENT: Pt states history of gallstones and some intermittent abd pain. Will get us and if still present, recommend surgical intervention. LAB ORDERS: Order number: [id number] Test Ordered: US PANCREAS, LIVER & GALLBLADDER 719.46-PAIN JOINT KNEE ASSESSMENT: pt with chronic issue of knee pain, possible pt may have patellar femoral syndrome or is developing oa given obesity and stress on weight bearing joint. Advise pt. and cont weight loss. V70.0-ROUTINE GENERAL MEDICAL EXAMINATION LAB ORDERS: Order number: [id number] Test Ordered: COMPREHENSIVE METABOLIC PANEL & GFR 1112 Order number: [id number] Test Ordered: CBC W/ DIFFERENTIAL 3150 Order number: [id number] Test Ordered: LIPID PANEL 1078 788.1-DYSURIA ASSESSMENT: Pt with some discomfort with urination, but negative ua. Pt states no vaginal dc or odor. Pt also with normal exam. 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 LAB ORDERS: Order number: [id number] Test Ordered: URINALYSIS W/O MICRO [id number] RETURN VISIT: in one year or as needed. Will call pt with results of us. 05/26/06 12:45 p Electronically signed by Priti Mahmood MD. TEACHING PHYSICIAN COMMENTS: I have reviewed the resident's note and I agree with the resident's evaluation and plan. Electronically Signed by: Amy Nickerson MD on Monday, June 05, 2006 documented in this encounter Plan of Treatment Upcoming Encounters Date Type Department Care Team (Late st Contact Info) Description 02/18/2025 1:30 PM PHOTOGRAVURE PRESS OPERATOR Appointment [facility] Family Medicine [place] [address] [place] [address] [place] [address] [place] [address] documented as of this encounter Visit Diagnoses Not on filedocumented in this encounter Care Teams Drafter Marine Relationship Specialty [place] [address] [place] [id number] PCP - General Family Practice 05/12/21 documented as of this encounter
--- OUTSIDE RECORDS SUMMARY | 2024-09-02 17:07 | XMS_ITS | Encounter Summary ---
Author Organization [facility] Address [address] [place] [address] Care Team Providers Care Service And Repair Supervisor Name Role Phone Tatyana Cardona DO Primary Care Provider Encounter Details Date Type Department Care Team (Late st Contact Info) Description 11/12/2005 Outpatient Historical [facility] [address] [facility] [address] [place] [address] [place] [address] [address] [place] [address] Social History Tobacco Use Types Packs/Day Years Used Date Smoking Tobacco: Never Assessed Comments Unknown Sex and Gender Information Value Date Recorded Sex Assigned at Female 02/06/2023 4:09 PM TOOL RADIAL DRILL PRESS SET UP OPERATOR Legal Sex Female 4:50 AM TOOL RADIAL DRILL PRESS SET UP OPERATOR Gender Identity Female 02/06/2023 4:09 PM TOOL RADIAL DRILL PRESS SET UP OPERATOR Sexual Orientation Straight 02/06/2023 4: 09 PM TOOL RADIAL DRILL PRESS SET UP OPERATOR documented as of this encounter Last Filed Vital Signs Vital Sign Reading Time Taken Comments Blood Pressure 120/75 11/12/2005 9:20 AM CDT Pulse 75 11/12/2005 9:20 AM CDT Temperature - - Respiratory Rate - - Oxygen Saturation - - Inhaled Oxygen Concentration - - Weight 125.2 kg (276 lb) 11/12/2005 9:20 AM CDT Height - - Body Mass Index 43.88 03/27/2004 4:30 PM TOOL RADIAL DRILL PRESS SET UP OPERATOR documented in this encounter Plan of Treatment Upcoming Encounters Date Type Department Care Team (Late st Contact Info) Description 02/18/2025 1:30 PM TOOL RADIAL DRILL PRESS SET UP OPERATOR Appointment [facility] Family Medicine [place] [address] [facility] [address] [place] [phone] [place] [address] [facility] [address] [place] [address] documented as of this encounter Visit Diagnoses Not on filedocumented in this encounter Care Teams Service And Repair Supervisor Relationship Specialty [place] [address] [facility] [address] [place] [address] PCP - General Family Practice 05/12/21 documented as of this encounter
--- OUTSIDE RECORDS SUMMARY | 2024-09-02 17:07 | XMS_ITS | Encounter Summary ---
Author Organization [facility] Address [address] [place] [address] Care Team Providers Care Animal Sticker Name Role Phone Tatyana Cardona DO Primary Care Provider Encounter Details Date Type Department Care Team (Latest Contact Info) Description 05/29/2001 Outpatient Historical [facility] CHOLELITHIASIS NOS (Primary Dx) Social History Tobacco Use Types Packs/Day Years Used Date Smoking Tobacco: Never Assessed Comments Unknown Sex and Gender Information Value Date Recorded Sex Assigned at Female 02/06/2023 4:09 PM DIRECTOR TREASURER Legal Sex Female 4:50 AM DIRECTOR TREASURER Gender Identity Female 02/06/2023 4:09 PM DIRECTOR TREASURER Sexual Orientation Straight 02/06/2023 4: 09 PM DIRECTOR TREASURER documented as of this encounter Plan of Treatment Upcoming Encounters Date Type Department Care Team (Late st Contact Info) Description 02/18/2025 1:30 PM DIRECTOR TREASURER Appointment [facility] Medicine [place] [address] [place] [address] [place] [address] [facility] [address] [place] [address] documented as of this encounter Visit Diagnoses Diagnosis Calculus of gallbladder without mention of cholecystitis or obstruction- Primary documented in this encounter Care Teams Animal Sticker Relationship Specialty [place] [address] [facility] [facility] [place] [address] PCP - General Family Practice 05/12/21 documented as of this encounter
--- OUTSIDE RECORDS SUMMARY | 2024-09-02 17:07 | XMS_ITS | Encounter Summary ---
Author Organization [facility] Address [address] [place] [address] Care Team Providers Care Rod Buster Name Role Phone Tatyana Cardona DO Primary Care Provider Encounter Details Date Type Department Care Team (Late st Contact Info) Description 01/28/2003 Outpatient Historical [facility] Medicine [place] [address] [place] [address] [place] [address] [place] [address] Social History Tobacco Use Types Packs/Day Years Used Date Smoking Tobacco: Never Assessed Comments Unknown Sex and Gender Information Value Date Recorded Sex Assigned at Female 02/06/2023 4:09 PM MEDICAL OFFICE RECEPTIONIST Legal Sex Female 4:50 AM MEDICAL OFFICE RECEPTIONIST Gender Identity Female 02/06/2023 4:09 PM MEDICAL OFFICE RECEPTIONIST Sexual Orientation Straight 02/06/2023 4: 09 PM MEDICAL OFFICE RECEPTIONIST documented as of this encounter Plan of Treatment Upcoming Encounters Date Type Department Care Team (Late st Contact Info) Description 02/18/2025 1:30 PM MEDICAL OFFICE RECEPTIONIST Appointment [facility] Medicine [place] [address] [place] [address] [place] [address] [address] [place] [address] documented as of this encounter Visit Diagnoses Not on filedocumented in this encounter Care Teams Rod Buster Relationship Specialty [place] [address] [address] [place] [address] PCP - General Family Practice 05/12/21 documented as of this encounter
--- OUTSIDE RECORDS SUMMARY | 2024-09-02 17:07 | XMS_ITS | Continuity of Care Document ---
Author Organization [facility] Address [address] [place] [address] Phone Care Team Providers Care Press Smith Helper Name Role Phone Dale Goodwin MD Unavailable Unavailabl e Allergies, Adverse Reactions, Alerts Substance Reaction Status Criticality lansoprazole Active No Information Medications Medication Instructions Dosage Effective Dates (start - stop) Status Comments alclometasone 0.05 % topical cream apply by topical route 2 times every day a thin layer to the affected area(s) 0.00 - Active triamcinolone acetonide 0.1 % topical cream apply by topical route 2 times every day a thin layer to the affected area(s) 0.00 - Active albuterol sulfate HFA 90 mcg/actuation aerosol inhaler inhale 2 puff by inhalation route every 4 - 6 hours as needed 180 MCG - Active Zyrtec 10 mg tablet take 1 tablet by ora l route every day 10 MG - Active Procedures Procedure Date OFFICE/OUTPATIENT VISIT EST OFFICE/OUTPATIENT VISIT EST OFFICE/OUTPATIENT VISIT EST OFFICE/OUTPATIENT VISIT EST BREATHING CAPACITY TEST OFFICE/OUTPATIENT VISIT EST BREATHING CAPACITY TEST OFFICE/OUTPATIENT VISIT NEW Advance Directives Directive Yes / No Effective Date File Name No Information Encounters Encounter Description Practice Location Reason(s) For Visit Diagnoses Date Provider Providers Copied on Encounter [facility] , [address], [place], [address], [place] tel:[phone] [facility] No Information 5 Buddy Hamsa. [address], [place], [place], [id number]. tel:[phone] OFFICE/OUTPA TIENT VISIT EST [facility] , [address], [place], [address], [place] tel:[phone] [facility] allergy evaluation (chief complaint) Lip swellingAllerg ic dermatitis due to other chemical product 4 Buddy Hamsa. [address], [place], [place], [id number]. tel:[phone] OFFICE/OUTPA TIENT VISIT EST [facility] , [address], [place], [address], [place] tel:[phone] [facility] Follow up (chief complaint) Allergic contact dermatitis due to metalsRash and nonspecific skin eruptionTineaM ild persistent asthma, uncomplicated 4 Buddy Hamsa. [address], [place], [place], [address]. tel:[phone] OFFICE/OUTPA TIENT VISIT EST [facility] , [address], [place], [address], [place] tel:[phone] [facility] needs refill (chief complaint) Body mass index [BMI] 45.0-49.9, adultRash and nonspecific skin eruptionTineaA llergic contact dermatitis due to metalsMild persistent asthma, uncomplicated 3 Buddy Hamsa. [address], [place], [place], [address]. tel:[phone] OFFICE/OUTPA TIENT VISIT EST [facility] , [address], [place], [address], [place] tel:[phone] [facility] break out in skin (chief complaint) Rash and nonspecific skin eruptionBody mass index [BMI] 50.0-59.9, adultEssential (primary) hypertension 1 Buddy Hamsa. [address], [place], [place], [address]. tel:[phone] [facility] , [address], [place], [address], [place] tel:[phone] [facility] Candidiasis of breast 1 Buddy Hamsa. [address], [place], [place], [address]. tel:[phone] [facility] , [address], [place], [address], [place] tel:[phone] [facility] Eczema of handMild persistent asthma without complicationSe asonal allergic rhinitis due to pollen 1 Buddy Hamsa. [address], [place], [place], [address]. tel:[phone] OFFICE/OUTPA TIENT VISIT EST [facility] , [address], [place], [address], [place] tel:[phone] [facility] Annual check-up (chief complaint) Mild persistent asthma without complicationEc zema of handAcute allergic rhinitis due to pollenReflux gastritisVacci ne counselingBody mass index [BMI] 50.0-59.9, adult 1 Buddy Hamsa. [address], [place], [place], [address]. tel:[phone] OFFICE/OUTPA TIENT VISIT NEW [facility] , [address], [place], [address], [place] tel:[phone] [facility] allergy evaluation (chief complaint) Body mass index (BMI) 37.0-37.9, adultMild persistent asthma without complicationAc chilkat allergic rhinitis due to pollenAirborne cat allergyReflux gastritisEczem a of hand 0 Buddy Hamsa. [address], [place], [place], [address]. tel:[phone] Family History Family Member Type Diagnosis Age At Onset No Information Immunizations Vaccine Date Status Comments influenza, injectable, quadr ivalent, (3 years or older) administered Source: Other Provid er Payers Payer name Insurance type Covered green party ID Alana odom(s) Blue Access PPO [id number] OT [id number] Social History Type Description Quantity Date Captured Comments Alcohol Use Details Unknown Caffeine Use Details Unknown Tobacco Use Status No Information Smoking Status No Information Sex Female Chief Complaint And Reason For Visit No Information Reason For Referral Reason For Referral No Information Plan Of Treatment Date Type Action Status Referral Ordered: Blood Pressure management: Referral to general practitioner timeframe: 1 Month. (related to Essential (primary) hypertension) ordered Appointment Jayne Kennedy Scheduled Appointment Jayne Kennedy Scheduled History Of Present Illness Encounter Date Complaint History Of Prese nt Illness allergy evaluation 63 year-old celso jerome has a history of contact dermatitis, especially two metals. She also has asthma, which, according to her during the changes and season spring and recently in fall has been bothersome otherwise stable. She has a tendency to get. Tinea infections. All of these are stable currently. Patient used to be under the care of a previous diesel power shovel operator who had given her some cream whenever she would get lip swelling. Patient returned home from serving and she gave him a kiss immediately following her upper lip, which is still slightly swollen, started swelling. did not hurt did not progress did not cause any difficulty talking or breathing and she could swallow without any problems.No associated blisters in her tongue.She did not ask him what he ate,She is unsure if he had perfumes or if his mustache was groomed by any personal product.The only pain medication she takes meloxicam Follow up This is a follow -up for 63-year-old patient who was seen with multiple skin lesions. Overall, she is doing remarkably well asthma is under control. Approximately June 08 after a very long time she needed albuterol because of high pollen count other than that, there has been no problems with asthma PRN she takes Zyrtec sometimes she takes a second Zyrtec for allergies.Patient is on meloxicam for Achilles tendinitis. She has right knee pain after fall and is undergoing physical therapy.She has a rash on her right foot suspected to be antifungal. She will follow up with the clay puddler. Doing liver function test wants her to try lamisilRash on her hands is completely gone. needs refill Patient gets con tact/irritant dermatitis upon contact with any jewelry. She wears especially around her neck. She colored her hair two days later wore a pole necklace, which rubbed against her skin on the neck. She started breaking out into a rash that was itchy. In addition, she wore a lanyard for work tells me it was cloth. She's an out of her topical medication and is requesting a refill. Patient was last seen in 2020 when a similar reaction had occurred when she wore scarves especially woolen scarves around her neck. She was asked to avoid wearing anything tight around her neck at that time. She was given a triamcinolone cream.Patient does not sweat a lotIn the past she was seen for a spider bite that has it resolved.In addition, she has mild allergy induced asthma. She has an albuterol that April 2021, since the changes in seasons, she has needed it sporadically, less than once a month, never at midnight, sometimes with exertion. break out in skin no changes in medical Hx , no new medications No COVID and no Flu shot started breaking out in her neck, started when she started wearing scarfs and when it got cooler , scarfs are not wool, either silk or polyether , 1st time scarf has fallen on the floor, no pets at home- 1st time she noticed was 3 weeks ago it was kept in a box when she moved to a new home in september had on pearls recently but no other chains colored her hair last week , scalp was not itchy has triamcinolone (02/01 exp) and has 0.1% hydrocortisone (when her lips break out )not taking montelukast , takes zyrtec in the morning - nights she has hand itchingrest of her body feels great she was seen for fungal rash last time and that has resolved Annual check-up This is a follow up with patient. She was last seen September 2019. Patient has done relatively well. 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 Patient has a history of asthma and pollen allergy. She also has reflux which could be contributing to her cough and hand eczema.Patient is using montelukast and has had no side effects. She has needed her pro air in the past two weeks mainly because she's an out of the montelukast. While on the montelukast patients symptoms of asthma are under control. She has not had nocturnal asthma in a very long time.Patient refuses to take the flu shot. She also refuses to take the Covid vaccine. 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 She was told that that age group will not be getting the vaccine. She has to really take precaution and continue to wear the mask and socially distance.she has not had an annual CHECK up from her PCP [facility]- not seen PCP , father 82 with an aortic aneurysm mom 97 - alzhemiers , dm , htnProair count of 220 she still has 185 allergy evaluation her previous diesel power shovel operator retired and she needs refills 1. she has eczema , currently mainly on her palms, she is a teacher and she uses PRN ,desoximethasone 2. she has spring allergies and takes as needed zyrtec 3 she ran out of her proair, she needs refills , she coughs in the middle of the night , she uses her rescue inhaler, she also uses it in the season 4. she was skin tested - many years ago , she cannot remember what she is allergins to but was told she has multiple Allergies5 .she was not given the diagnosis of asthma but she has wheezing in spring 6.cats cause severe symptoms7.she has no pets 8. she has allergic eyes was on Zaditor and now uses a homeopathic eye drops9.no pets , no water leak 10. she has spring allergies , summer is fine , fall she has mild allergies, winter she is fine '11. she admits to heart burn and indigestion at night , she was given prevacid , she started loosing her hair - so she stopped , she wakes up at night with reflux symptoms Functional Status Date Functional Assessmen t No Information Instructions Date Instruction Andre wing Avoid any oral stero ids and topical steroids for at least 7 days before the patch test. Patch test will not be placed if there is sun burn, tanning lotion or exzema like skin on the back. Antihistamines can be continued as long as the patch test is in place; do not wet the area, if the patch falls off, do not re-apply the patch test. Related to Allergic dermatitis due to other chemical product Avoid any oral stero ids and topical steroids for at least 7 days before the patch test. Patch test will not be placed if there is sun burn, tanning lotion or exzema like skin on the back. Antihistamines can be continued as long as the patch test is in place; do not wet the area, if the patch falls off, do not re-apply the patch test. Related to Allergic contact dermatitis due to metals Giving encouragement to exercise Related to Body mass index [BMI] 45.0-49.9, adult Giving encouragement to exercise Related to Body mass index [BMI] 50.0-59.9, adult - avoid late night m eals, avoid heavy meals at night , elevate head end of the bed by using blocks or wedged at the head end of the bed and not by pillows, loose weight around abdomen area. Cut back on Alcohol. Related to Reflux gastritis ACAAI guidelines provided Relate d to Vaccine counseling Giving encouragement to exercise Related to Body mass index [BMI] 50.0-59.9, adult Dietary needs education Related to Body mass index [BMI] 50.0-59.9, adult - avoid late night m eals, avoid heavy meals at night , elevate head end of the bed by using blocks or wedged at the head end of the bed and not by pillows, loose weight around abdomen area. Cut back on Alcohol. Related to Reflux gastritis Giving encouragement to exercise Related to Body mass index (BMI) 37.0-37.9, adult Dietary needs education Related to Body mass index (BMI) 37.0-37.9, adult Assessments Type Assessment Date No Information Patient Care Teams Name Effective Dates (start - stop) Status Members No Information
--- OUTSIDE RECORDS SUMMARY | 2024-09-02 17:07 | XMS_ITS | Encounter Summary ---
Author Organization [facility] Address [address] [place] [address] Care Team Providers Care Racehorse Trainer Name Role Phone Tatyana Cardona DO Primary Care Provider [phone] Encounter Details Date Type Department Care Team (Latest Contact Info) Description 06/06/2006 Outpatient Historical [facility] Priti Mahmood MD [address] [facility] [place] [address] Pain in Joint, Lower Leg (Primary Dx) Social History Tobacco Use Types Packs/Day Years Used Date Smoking Tobacco: Never Assessed Comments Unknown Sex and Gender Information Value Date Recorded Sex Assigned at Female 02/06/2023 4:09 PM PLATFORM BUILDER Legal Sex Female 4:50 AM PLATFORM BUILDER Gender Identity Female 02/06/2023 4:09 PM PLATFORM BUILDER Sexual Orientation Straight 02/06/2023 4: 09 PM PLATFORM BUILDER documented as of this encounter Plan of Treatment Upcoming Encounters Date Type Department Care Team (Late st Contact Info) Description 02/18/2025 1:30 PM PLATFORM BUILDER Appointment [facility] Medicine Jazz [place] [address] [place] [address] [place] [address] [place] [address] documented as of this encounter Visit Diagnoses Diagnosis Pain in joint, lower leg- Primary documented in this encounter Care Teams Racehorse Trainer Relationship Specialty [place] [address] [address] [place] [address] PCP - General Family Practice 05/12/21 documented as of this encounter
--- OUTSIDE RECORDS SUMMARY | 2024-09-02 17:07 | XMS_ITS | Encounter Summary ---
Author Organization [facility] Address [address] [place] [address] Care Team Providers Care Job Printer Apprentice Name Role Phone Tatyana Cardona DO Primary Care Provider Encounter Details Date Type Department Care Team (Late st Contact Info) Description 06/13/2000 Outpatient Historical [facility] DEPT OF FAMILY MEDICINE Wendy Rose MD [address] [place] [address] Social History Tobacco Use Types Packs/Day Years Used Date Smoking Tobacco: Never Assessed Comments Unknown Sex and Gender Information Value Date Recorded Sex Assigned at Female 02/06/2023 4:09 PM KILN STACKER Legal Sex Female 4:50 AM KILN STACKER Gender Identity Female 02/06/2023 4:09 PM KILN STACKER Sexual Orientation Straight 02/06/2023 4: 09 PM KILN STACKER documented as of this encounter Plan of Treatment Upcoming Encounters Date Type Department Care Team (Late st Contact Info) Description 02/18/2025 1:30 PM KILN STACKER Appointment [facility] [place] [address] [facility] [address] [place] [address] [place] [address] [facility] [address] [place] [address] documented as of this encounter Visit Diagnoses Not on filedocumented in this encounter Care Teams Job Printer Apprentice Relationship Specialty [place] [address] [address] PCP - General Family Practice 05/12/21 documented as of this encounter
--- OUTSIDE RECORDS SUMMARY | 2024-09-02 17:07 | XMS_ITS | Encounter Summary ---
Author Organization [facility] Address [address] [place] [address] Care Team Providers Care Tire Shop Manager Name Role Phone Tatyana Cardona DO Primary Care Provider [phone] Encounter Details Date Type Department Care Team (Late st Contact Info) Description 09/22/2003 Outpatient Historical [facility] Jazz [place] [address] [place] [address] [place] [address] [place] [address] Social History Tobacco Use Types Packs/Day Years Used Date Smoking Tobacco: Never Assessed Comments Unknown Sex and Gender Information Value Date Recorded Sex Assigned at Female 02/06/2023 4:09 PM HOTEL OPERATION MANAGER Legal Sex Female 4:50 AM HOTEL OPERATION MANAGER Gender Identity Female 02/06/2023 4:09 PM HOTEL OPERATION MANAGER Sexual Orientation Straight 02/06/2023 4: 09 PM HOTEL OPERATION MANAGER documented as of this encounter Plan of Treatment Upcoming Encounters Date Type Department Care Team (Late st Contact Info) Description 02/18/2025 1:30 PM HOTEL OPERATION MANAGER Appointment [facility] Medicine Jazz [place] [address] [place] [address] [place] [address] [place] [address] documented as of this encounter Visit Diagnoses Not on filedocumented in this encounter Care Teams Tire Shop Manager Relationship Specialty Start [place] [address] [facility] [address] [place] [address] PCP - General Family Practice 05/12/21 documented as of this encounter
--- OUTSIDE RECORDS SUMMARY | 2024-09-02 17:07 | XMS_ITS | Encounter Summary ---
Author Organization [facility] Address [address] [place] [address] Care Team Providers Care Leather Toggler Name Role Phone Tatyana Cardona DO Primary Care Provider Encounter Details Date Type Department Care Team (Late st Contact Info) Description 10/10/2000 Outpatient Historical [facility] DEPT OF [place] [address] [address] [place] [address] Social History Tobacco Use Types Packs/Day Years Used Date Smoking Tobacco: Never Assessed Comments Unknown Sex and Gender Information Value Date Recorded Sex Assigned at Female 02/06/2023 4:09 PM BOOK PACKER Legal Sex Female 4:50 AM BOOK PACKER Gender Identity Female 02/06/2023 4:09 PM BOOK PACKER Sexual Orientation Straight 02/06/2023 4: 09 PM BOOK PACKER documented as of this encounter Plan of Treatment Upcoming Encounters Date Type Department Care Team (Late Contact Info) Description 02/18/2025 1:30 PM BOOK PACKER Appointment [facility] Family Medicine [place] [address] [place] [address] [place] [address] [place] [address] documented as of this encounter Visit Diagnoses Not on filedocumented in this encounter Care Teams Leather Toggler Relationship Specialty Start [place] [address] [address] PCP - General Family Practice 05/12/21 documented as of this encounter
--- OUTSIDE RECORDS SUMMARY | 2024-09-02 17:07 | XMS_ITS | Encounter Summary ---
Author Organization [facility] Address [address] [place] [address] Care Team Providers Care Looseleaf Binder Coverer Name Role Phone Tatyana Cardona DO Primary Care Provider Encounter Details Date Type Department Care Team (Late st Contact Info) Description 06/13/2000 Outpatient Historical [facility], [address] Social History Tobacco Use Types Packs/Day Years Used Date Smoking Tobacco: Never Assessed Comments Unknown Sex and Gender Information Value Date Recorded Sex Assigned at Female 02/06/2023 4:09 PM ORDNANCE ARTIFICER HELPER Legal Sex Female 4:50 AM ORDNANCE ARTIFICER HELPER Gender Identity Female 02/06/2023 4:09 PM ORDNANCE ARTIFICER HELPER Sexual Orientation Straight 02/06/2023 4: 09 PM ORDNANCE ARTIFICER HELPER documented as of this encounter Plan of Treatment Upcoming Encounters Date Type Department Care Team (Late st Contact Info) Description 02/18/2025 1:30 PM ORDNANCE ARTIFICER HELPER Appointment [facility] Medicine [place] [address] [place] [address] [place] [address] [place] [address] documented as of this encounter Visit Diagnoses Not on filedocumented in this encounter Care Teams Looseleaf Binder Coverer Relationship Specialty [place] [address] [facility] [address] [place] [address] PCP - General Family Practice 05/12/21 documented as of this encounter
--- OUTSIDE RECORDS SUMMARY | 2024-09-02 17:07 | XMS_ITS | Encounter Summary ---
Author Organization [employer] Address [address] [facility] Attn: Epic Prelude ADT DEWAYNE ACOSTA [address] Care Team Providers Care Cylinder Handler Name Role Phone LorirocioTatyana DO Primary Care Provider Encounter Details Date Type Department Care Team (Latest Contact Info) Description 04/16/2005 Orders Only Fely Pinto MD [address] [facility] [place] [address] Social History Tobacco Use Types Packs/Day Years Used Date Smoking Tobacco: Never Assessed Comments Unknown Sex and Gender Information Value Date Recorded Sex Assigned at Female 02/06/2023 4:09 PM CORPORATE ACCOUNTING MANAGER Legal Sex Female 4:50 AM CORPORATE ACCOUNTING MANAGER Gender Identity Female 02/06/2023 4:09 PM CORPORATE ACCOUNTING MANAGER Sexual Orientation Straight 02/06/2023 4: 09 PM CORPORATE ACCOUNTING MANAGER documented as of this encounter Progress Notes * Interface, Suresh Stl Conv Transcriptions - 11/20/2007 5:23 PM CDT NURSE NAME: Juanita Bergeron R WEIGHT: 262lbs. BLOOD PRESSURE: 126/80. Right Arm Sitting PULSE: 84. 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 Patient developed diarrhea-totally unformed, green, watery stools with some crampy abdominal pain and nausea. No bloody stools. She had diarrhea every hour or so from 04/13 in the evening, all day 04/14 and most ofthe day 04/15. She had several episodes of emesis that began in the early hours of 04/14, but concludedby noon that day. Dad some chills on 04/13 and 04/14 but has been feeling much better since yesterday evening. Yesterday she awoke with her left eye itching and purulent. Does not have compromised vision, light sensitivity, or excess tearing. 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 Reports index and middle finger on left and middle and ring finger on left tingled when she vomited. -Not currently experiencing. No injuries As we discussed patient's chief complaint-we actually realized that her change in appetite is due to her new exercise and weight loss program that she started at [employer] and is now doing on her own. ROS: GENERAL: DECREASED APPETITE, normal energy level, FEELS FATIGUED. ALLERGIC/IMMUNOLOGIC: No allergic rhinitis, no hay fever. EYES: See HISTORY OF PRESENT ILLNESS. GI: See HISTORY OF PRESENT ILLNESS. NEUROLOGIC: See HISTORY OF PRESENT ILLNESS. Patient's history reviewed; no changes. PHYSICAL EXAMINATION: CONSTITUTIONAL: GENERAL APPEARANCE: -L[place] female, appears stated age, normally nourished, developmentally normal, in no acute distress, OBESE BODY HABITUS. EYES: Left eye is injected with irritated conjunctivae EARS, NOSE, MOUTH AND THROAT: EARS: Tympanic membranes shiny without retraction. Canals unremarkable. NOSE (AND SINUS): TURBINATES SWOLLEN BILATERALLY. ORAL: minimal erythema posteriorly NECK/THYROID: No adenopathy RESPIRATORY: Clear to auscultation and percussion. Normal respiratory effort. CARDIOVASCULAR: CARDIAC: Regular rhythm. No murmurs, rubs, or gallops. GASTROINTESTINAL: ABDOMEN: Pannus not increased, THE ABDOMEN IS ROUNDED, normal bowel sounds, no tenderness is present. NEUROLOGIC: SENSATION UPPER EXTREMITY: Normal to touch, pinprick and vibration. Negative phalen's, tinel's. 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 MEDICATIONS: GENTAMICIN SULFATE OPHTHALMIC OINTMENT 0.3 % TUBES, SEE REMARKS, 1 Dispensed, status: CONTINUED, 04/16/2005. 477.9-RHINITIS ALLERGIC UNSPECIFIED MEDICATIONS: FLONASE NASAL SUSPENSION 50 MCG/ACT INHALERS, May substitute another nasal steroid with a lower copay one puff in each nostril once a day, 1 Dispensed, 3 Fills, status: NEW PRESCRIPTION, 04/16/2005. ZYRTEC-D ORAL TABLET 12 HR 5-120 MG TABLETS, one twice a day from station engineer chief, 1 Dispensed, status: NEW PRESCRIPTION, 04/16/2005. 009.0-GASTROENTERITIS ASSESSMENT: Resolved. Not sure what caused the tingling of her fingers when she vomited-?transient change in electrolytes-making tight fists? Resolved-if it returns, we will examine again. RETURN VISIT: Instructed to call if not improving. 04/19/05 08:50 a Electronically signed by Fely Pinto MD. TEACHING PHYSICIAN COMMENTS: I have reviewed the resident's note and I agree with the resident's evaluation and plan. jll Electronically Signed by: Demetrius Moore MD on Monday, April 25, 2005 documented in this encounter Plan of Treatment Upcoming Encounters Date Type Department Care Team (Late st Contact Info) Description 02/18/2025 1:30 PM CORPORATE ACCOUNTING MANAGER Appointment [facility] Medicine Jazz Erwin [address] [employer] [facility] [address] [place] [address] [place] [address] [employer] [facility] [address] [place] [address] documented as of this encounter Visit Diagnoses Not on filedocumented in this encounter Care Teams Cylinder Handler Relationship Specialty [place] [address] [employer] [facility] [address] [place] [address] PCP - General Family Practice 05/12/21 documented as of this encounter
--- OUTSIDE RECORDS SUMMARY | 2024-09-02 17:07 | XMS_ITS | Encounter Summary ---
Author Organization [facility] Address [address] [place] [address] Care Team Providers Care Wildlife Removal Specialist Name Role Phone Tatyana Cardona DO Primary Care Provider Encounter Details Date Type Department Care Team (Late st Contact Info) Description 10/06/2001 Outpatient Historical [facility] DEPT OF FAMILY MEDICINE Tarsha Little MD NO ADDRESS ON FILE Social History Tobacco Use Types Packs/Day Years Used Date Smoking Tobacco: Never Assessed Comments Unknown Sex and Gender Information Value Date Recorded Sex Assigned at Female 02/06/2023 4:09 PM CAN PILER Legal Sex Female 4:50 AM CAN PILER Gender Identity Female 02/06/2023 4:09 PM CAN PILER Sexual Orientation Straight 02/06/2023 4: 09 PM CAN PILER documented as of this encounter Plan of Treatment Upcoming Encounters Date Type Department Care Team (Late st Contact Info) Description 02/18/2025 1:30 PM CAN PILER Appointment [facility] Family Medicine Jazz Hood [address] [facility] [address] [place] [address] [place] [address] [employer] [facility] [address] [place] [address] documented as of this encounter Visit Diagnoses Not on filedocumented in this encounter Care Teams Wildlife Removal Specialist Relationship Specialty [place] [address] [facility] [address] [place] [address] PCP - General Family Practice 05/12/21 documented as of this encounter
--- OUTSIDE RECORDS SUMMARY | 2024-09-02 17:07 | XMS_ITS | Encounter Summary ---
Author Organization [facility] Address [address] [place] [address] Care Team Providers Care Production Technologist Name Role Phone Tatyana Cardona DO Primary Care Provider [phone] Encounter Details Date Type Department Care Team (Late st Contact Info) Description 08/21/2006 Outpatient Historical [facility] [address] [place] [address] Chip Calvillo MD [address] [facility] [address] [place] [address] Social History Tobacco Use Types Packs/Day Years Used Date Smoking Tobacco: Never Assessed Comments Unknown Sex and Gender Information Value Date Recorded Sex Assigned at Female 02/06/2023 4:09 PM MILK PICKUP TRUCK DRIVER Legal Sex Female 4:50 AM MILK PICKUP TRUCK DRIVER Gender Identity Female 02/06/2023 4:09 PM MILK PICKUP TRUCK DRIVER Sexual Orientation Straight 02/06/2023 4: 09 PM MILK PICKUP TRUCK DRIVER documented as of this encounter Plan of Treatment Upcoming Encounters Date Type Department Care Team (Late st Contact Info) Description 02/18/2025 1:30 PM MILK PICKUP TRUCK DRIVER Appointment [facility] Medicine Jazz [place] [address] [place] [address] [place] [address] [facility] [address] [place] [address] documented as of this encounter Visit Diagnoses Not on filedocumented in this encounter Care Teams Production Technologist Relationship Specialty [place] [address] [address] [place] [address] PCP - General Family Practice 05/12/21 documented as of this encounter
--- OUTSIDE RECORDS SUMMARY | 2024-09-02 17:07 | XMS_ITS | Encounter Summary ---
Author Organization [facility] Address [address] [place] [address] Care Team Providers Care Ear Specialist Name Role Phone Tatyana Cardona DO Primary Care Provider [phone] Encounter Details Date Type Department Care Team (Latest Contact Info) Description 09/24/2003 Outpatient Historical [facility] May Maria MD [address] [facility] [address] [place] [address] SCREENING MAMM-MAILG NEOPL-OTHER (Primary Dx) Social History Tobacco Use Types Packs/Day Years Used Date Smoking Tobacco: Never Assessed Comments Unknown Sex and Gender Information Value Date Recorded Sex Assigned at Female 02/06/2023 4:09 PM AUTHORIZATION MANAGER Legal Sex Female 4:50 AM AUTHORIZATION MANAGER Gender Identity Female 02/06/2023 4:09 PM AUTHORIZATION MANAGER Sexual Orientation Straight 02/06/2023 4: 09 PM AUTHORIZATION MANAGER documented as of this encounter Plan of Treatment Upcoming Encounters Date Type Department Care Team (Late st Contact Info) Description 02/18/2025 1:30 PM AUTHORIZATION MANAGER Appointment [facility] Family Medicine Jazz [place] [address] [facility] [address] [place] [address] [place] [address] [facility] [address] [place] [address] documented as of this encounter Visit Diagnoses Diagnosis Other screening mammogram- Primary documented in this encounter Care Teams Ear Specialist Relationship Specialty [place] [address] [facility] [address] [place] [address] PCP - General Family Practice 05/12/21 documented as of this encounter
--- OUTSIDE RECORDS SUMMARY | 2024-09-02 17:07 | XMS_ITS | Encounter Summary ---
Author Organization [facility] Address [address] [place] [address] Care Team Providers Care Machine Operations Supervisor Name Role Phone Tatyana Cardona DO Primary Care Provider Encounter Details Date Type Department Care Team (Late st Contact Info) Description 04/23/2003 Outpatient Historical [facility] Medicine Jazz Hood [address] [place] [address] Balwinder Venegas Social History Tobacco Use Types Packs/Day Years Used Date Smoking Tobacco: Never Assessed Comments Unknown Sex and Gender Information Value Date Recorded Sex Assigned at Female 02/06/2023 4:09 PM TNT POWDER WORKER Legal Sex Female 4:50 AM TNT POWDER WORKER Gender Identity Female 02/06/2023 4:09 PM TNT POWDER WORKER Sexual Orientation Straight 02/06/2023 4: 09 PM TNT POWDER WORKER documented as of this encounter Plan of Treatment Upcoming Encounters Date Type Department Care Team (Late st Contact Info) Description 02/18/2025 1:30 PM TNT POWDER WORKER Appointment [facility] Medicine Jazz Hood [address] [employer] [address] [place] [address] [place] [address] [address] [place] [address] documented as of this encounter Visit Diagnoses Not on filedocumented in this encounter Care Teams Machine Operations Supervisor Relationship Specialty [place] [address] [facility] [address] [place] [address] PCP - General Family Practice 05/12/21 documented as of this encounter
--- OUTSIDE RECORDS SUMMARY | 2024-09-02 17:07 | XMS_ITS | Encounter Summary ---
Author Organization [facility] Address [address] [place] [address] Care Team Providers Care Annealing Furnace Operator Name Role Phone Tatyana Cardona DO Primary Care Provider Encounter Details Date Type Department Care Team (Late st Contact Info) Description 07/07/1999 Outpatient Historical HIS [facility] DEPT OF FAMILY MEDICINE Gallito Zepeda MD [address] [place] [address] Social History Tobacco Use Types Packs/Day Years Used Date Smoking Tobacco: Never Assessed Comments Unknown Sex and Gender Information Value Date Recorded Sex Assigned at Female 02/06/2023 4:09 PM UNDERGROUND BOLTING MACHINE OPERATOR Legal Sex Female 4:50 AM UNDERGROUND BOLTING MACHINE OPERATOR Gender Identity Female 02/06/2023 4:09 PM UNDERGROUND BOLTING MACHINE OPERATOR Sexual Orientation Straight 02/06/2023 4: 09 PM UNDERGROUND BOLTING MACHINE OPERATOR documented as of this encounter Plan of Treatment Upcoming Encounters Date Type Department Care Team (Late Contact Info) Description 02/18/2025 1:30 PM UNDERGROUND BOLTING MACHINE OPERATOR Appointment [facility] Family Medicine Jazz Hood [address] [facility] [address] [place] [address] [place] [address] [facility] [address] [place] [address] documented as of this encounter Visit Diagnoses Not on filedocumented in this encounter Care Teams Annealing Furnace Operator Relationship Specialty [place] [address] [address] PCP - General Family Practice 05/12/21 documented as of this encounter
--- OUTSIDE RECORDS SUMMARY | 2024-09-02 17:07 | XMS_ITS | Encounter Summary ---
Author Organization [facility] Address [address] [place] [address] Care Team Providers Care Manufacturing Laborer Name Role Phone Tatyana Cardona DO Primary Care Provider [phone] Encounter Details Date Type Department Care Team (Late st Contact Info) Description 12/18/[address] [facility] Family Medicine [facility] [address] [facility] [address] [place] [address] [place] [address] [place] [address] Social History Tobacco Use Types Packs/Day Years Used Date Smoking Tobacco: Never Assessed Comments Unknown Sex and Gender Information Value Date Recorded Sex Assigned at Female 02/06/2023 4:09 PM JUNIOR MEDIA BUYER Legal Sex Female 4:50 AM JUNIOR MEDIA BUYER Gender Identity Female 02/06/2023 4:09 PM JUNIOR MEDIA BUYER Sexual Orientation Straight 02/06/2023 4: 09 PM JUNIOR MEDIA BUYER documented as of this encounter Last Filed Vital Signs Vital Sign Reading Time Taken Comments Blood Pressure 122/74 12/18/2006 1:30 PM JUNIOR MEDIA BUYER Pulse 80 12/18/2006 1:30 PM JUNIOR MEDIA BUYER Temperature 37.9 C (100.2 F) 12/18/2006 1:30 PM JUNIOR MEDIA BUYER Respiratory Rate - - Oxygen Saturation - - Inhaled Oxygen Concentration - - Weight 124.7 kg (275 lb) 12/18/2006 1:30 PM JUNIOR MEDIA BUYER Height - - Body Mass Index 43.72 03/27/2004 4:30 PM JUNIOR MEDIA BUYER documented in this encounter Plan of Treatment Upcoming Encounters Date Type Department Care Team (Late st Contact Info) Description 02/18/2025 1:30 PM JUNIOR MEDIA BUYER Appointment [facility] Medicine Jazz Hood [address] [facility] [address] [place] [address] [place] [address] [facility] [address] [place] [address] documented as of this encounter Visit Diagnoses Not on filedocumented in this encounter Care Teams Manufacturing Laborer Relationship Specialty [place] [address] [facility] [address] [place] [address] PCP - General Family Practice 05/12/21 documented as of this encounter
--- OUTSIDE RECORDS SUMMARY | 2024-09-02 17:07 | XMS_ITS | Encounter Summary ---
Author Organization [facility] Address [address] [place] [address] Care Team Providers Care Executive Administrator Name Role Phone Tatyana Cardona DO Primary Care Provider Encounter Details Date Type Department Care Team (Latest Contact Info) Description 12/28/2005 Outpatient Historical [facility] May Maria MD [address] [facility] [address] [place] [address] Other Screening Mammogram (Primary Dx) Social History Tobacco Use Types Packs/Day Years Used Date Smoking Tobacco: Never Assessed Comments Unknown Sex and Gender Information Value Date Recorded Sex Assigned at Female 02/06/2023 4:09 PM DIRECTOR AERONAUTICS COMMISSION Legal Sex Female 4:50 AM DIRECTOR AERONAUTICS COMMISSION Gender Identity Female 02/06/2023 4:09 PM DIRECTOR AERONAUTICS COMMISSION Sexual Orientation Straight 02/06/2023 4: 09 PM DIRECTOR AERONAUTICS COMMISSION documented as of this encounter Plan of Treatment Upcoming Encounters Date Type Department Care Team (Late st Contact Info) Description 02/18/2025 1:30 PM DIRECTOR AERONAUTICS COMMISSION Appointment [facility] Family Medicine Jazz Hood [address] [facility] [address] [place] [address] [place] [address] [facility] [address] [place] [address] documented as of this encounter Visit Diagnoses Diagnosis Other screening mammogram- Primary documented in this encounter Care Teams Executive Administrator Relationship Specialty [place] [address] [facility] [address] [place] [address] PCP - General Family Practice 05/12/21 documented as of this encounter
--- OUTSIDE RECORDS SUMMARY | 2024-09-02 17:07 | XMS_ITS | Encounter Summary ---
Author Organization [facility] Address [address] [place] [address] Care Team Providers Care Concrete Carpenter Name Role Phone Tatyana Cardona DO Primary Care Provider [phone] Encounter Details Date Type Department Care Team (Latest Contact Info) Description 01/29/2003 Outpatient Historical [facility] [address] Tarsha Little MD NO ADDRESS ON FILE SCREENING FOR VENERAL DIS (Primary Dx) Social History Tobacco Use Types Packs/Day Years Used Date Smoking Tobacco: Never Assessed Comments Unknown Sex and Gender Information Value Date Recorded Sex Assigned at Female 02/06/2023 4:09 PM OPERATIONS SUPPORT ANALYST Legal Sex Female 4:50 AM OPERATIONS SUPPORT ANALYST Gender Identity Female 02/06/2023 4:09 PM OPERATIONS SUPPORT ANALYST Sexual Orientation Straight 02/06/2023 4: 09 PM OPERATIONS SUPPORT ANALYST documented as of this encounter Plan of Treatment Upcoming Encounters Date Type Department Care Team (Late st Contact Info) Description 02/18/2025 1:30 PM OPERATIONS SUPPORT ANALYST Appointment [facility] Medicine Jazz Hood [address] [facility] [address] [place] [address] [place] [address] [employer] [facility] [address] [place] [address] documented as of this encounter Visit Diagnoses Diagnosis Screening examination for venereal disease- Primary documented in this encounter Care Teams Concrete Carpenter Relationship Specialty [place] [address] [facility] [address] [place] [address] PCP - General Family Practice 05/12/21 documented as of this encounter
--- OUTSIDE RECORDS SUMMARY | 2024-09-02 17:07 | XMS_ITS | Encounter Summary ---
Author Organization [facility] Address [address] [place] [address] Care Team Providers Care Industrial Servicer Name Role Phone Tatyana Cardona DO Primary Care Provider Encounter Details Date Type Department Care Team (Late st Contact Info) Description 08/19/2006 Outpatient Historical [facility] Family Medicine [facility] [address] [facility] [address] [place] [address] [place] [address] [facility] [place] [address] Social History Tobacco Use Types Packs/Day Years Used Date Smoking Tobacco: Never Assessed Comments Unknown Sex and Gender Information Value Date Recorded Sex Assigned at Female 02/06/2023 4:09 PM TRACTOR OPERATOR HELPER Legal Sex Female 4:50 AM TRACTOR OPERATOR HELPER Gender Identity Female 02/06/2023 4:09 PM TRACTOR OPERATOR HELPER Sexual Orientation Straight 02/06/2023 4: 09 PM TRACTOR OPERATOR HELPER documented as of this encounter Last Filed Vital Signs Vital Sign Reading Time Taken Comments Blood Pressure 120/76 08/19/2006 3:50 PM CDT Pulse 76 08/19/2006 3:50 PM CDT Temperature 35.8 C (96.5 F) 08/19/2006 3:50 PM CDT Respiratory Rate - - Oxygen Saturation - - Inhaled Oxygen Concentration - - Weight 127.5 kg (281 lb) 08/19/2006 3:50 PM CDT Height - - Body Mass Index 44.68 03/27/2004 4:30 PM TRACTOR OPERATOR HELPER documented in this encounter Plan of Treatment Upcoming Encounters Date Type Department Care Team (Late st Contact Info) Description 02/18/2025 1:30 PM TRACTOR OPERATOR HELPER Appointment [facility] Medicine Jazz Hood [address] [facility] [address] [place] [address] [place] [address] [facility] [address] [place] [address] documented as of this encounter Visit Diagnoses Not on filedocumented in this encounter Care Teams Industrial Servicer Relationship Specialty Start [place] [address] [facility] [address] [place] [address] PCP - General Family Practice 05/12/21 documented as of this encounter
--- OUTSIDE RECORDS SUMMARY | 2024-09-02 17:07 | XMS_ITS | Encounter Summary ---
Author Organization [facility] Address [address] [place] [address] Care Team Providers Care Sweatband Separator Name Role Phone Tatyana Cardona DO Primary Care Provider [phone] Encounter Details Date Type Department Care Team (Latest Contact Info) Description 11/10/2004 Outpatient Historical [facility] May Maria MD [address] [facility] [address] [place] [address] SCREENING MAMM-MAILG NEOPL NEC (Primary Dx) Social History Tobacco Use Types Packs/Day Years Used Date Smoking Tobacco: Never Assessed Comments Unknown Sex and Gender Information Value Date Recorded Sex Assigned at Female 02/06/2023 4:09 PM UTILIZATION REVIEW RN Legal Sex Female 4:50 AM UTILIZATION REVIEW RN Gender Identity Female 02/06/2023 4:09 PM UTILIZATION REVIEW RN Sexual Orientation Straight 02/06/2023 4: 09 PM UTILIZATION REVIEW RN documented as of this encounter Plan of Treatment Upcoming Encounters Date Type Department Care Team (Late st Contact Info) Description 02/18/2025 1:30 PM UTILIZATION REVIEW RN Appointment [facility] Family Medicine Jazz Hood [address] [facility] [address] [place] [address] [place] [address] [facility] [address] [place] [address] documented as of this encounter Visit Diagnoses Diagnosis Other screening mammogram- Primary documented in this encounter Care Teams Sweatband Separator Relationship Specialty [place] [address] [facility] [address] [place] [address] PCP - General Family Practice 05/12/21 documented as of this encounter
--- OUTSIDE RECORDS SUMMARY | 2024-09-02 17:07 | XMS_ITS | Encounter Summary ---
Author Organization [facility] Address [address] [place] [address] Care Team Providers Care Leather Stamper Name Role Phone Tatyana Cardona DO Primary Care Provider Encounter Details Date Type Department Care Team (Latest Contact Info) Description 08/27/2002 Outpatient Historical HIS [facility] KASIA Little, MD Tarsha NO ADDRESS ON FILE SCREENING MAMM-MAILG NEOPL-OTHER (Primary Dx) Social History Tobacco Use Types Packs/Day Years Used Date Smoking Tobacco: Never Assessed Comments Unknown Sex and Gender Information Value Date Recorded Sex Assigned at Female 02/06/2023 4:09 PM OPTICAL COATING TECHNICIAN Legal Sex Female 4:50 AM OPTICAL COATING TECHNICIAN Gender Identity Female 02/06/2023 4:09 PM OPTICAL COATING TECHNICIAN Sexual Orientation Straight 02/06/2023 4: 09 PM OPTICAL COATING TECHNICIAN documented as of this encounter Plan of Treatment Upcoming Encounters Date Type Department Care Team (Late st Contact Info) Description 02/18/2025 1:30 PM OPTICAL COATING TECHNICIAN Appointment [facility] Family Medicine [place] [address] [place] [address] [place] [address] [address] [facility] [place] [facility] [address] [place] [address] documented as of this encounter Visit Diagnoses Diagnosis Other screening mammogram- Primary documented in this encounter Care Teams Leather Stamper Relationship Specialty [place] [address] [address] [place] [address] PCP - General Family Practice 05/12/21 documented as of this encounter
--- OUTSIDE RECORDS SUMMARY | 2024-09-02 17:07 | XMS_ITS | Encounter Summary ---
Author Organization [facility] Address [address] [place] [address] Care Team Providers Care Utilization Management Rn Name Role Phone Tatyana Cardona DO Primary Care Provider [phone] Encounter Details Date Type Department Care Team (Latest Contact Info) Description 12/18/2006 Outpatient Historical HIS [facility]ACK[facility] South-Jessie Wagoner MD [address] [place] [address] Pneumonia, Organism Unspecified (Primary Dx) Social History Tobacco Use Types Packs/Day Years Used Date Smoking Tobacco: Never Assessed Comments Unknown Sex and Gender Information Value Date Recorded Sex Assigned at Female 02/06/2023 4:09 PM SENIOR SUSTAINABILITY ADVISOR Legal Sex Female 4:50 AM SENIOR SUSTAINABILITY ADVISOR Gender Identity Female 02/06/2023 4:09 PM SENIOR SUSTAINABILITY ADVISOR Sexual Orientation Straight 02/06/2023 4: 09 PM SENIOR SUSTAINABILITY ADVISOR documented as of this encounter Plan of Treatment Upcoming Encounters Date Type Department Care Team (Late st Contact Info) Description 02/18/2025 1:30 PM SENIOR SUSTAINABILITY ADVISOR Appointment [facility] Medicine [place] [address] [address] [place] [address] [place] [address] [facility] [place] [address] documented as of this encounter Visit Diagnoses Diagnosis Pneumonia, organism unspecified(486)- Primary Pneumonia, organism unspecified documented in this encounter Care Teams Utilization Management Rn Relationship Specialty [place] [address] [facility] [address] [place] [address] PCP - General Family Practice 05/12/21 documented as of this encounter
--- OUTSIDE RECORDS SUMMARY | 2024-09-02 17:07 | XMS_ITS | Encounter Summary ---
Author Organization [facility] Address [address] [place] [address] Care Team Providers Care Senior Database Administrator Name Role Phone Tatyana Cardona DO Primary Care Provider [phone] Encounter Details Date Type Department Care Team (Late st Contact Info) Description 01/28/2003 Outpatient Historical [facility] [place] [address] [facility] [address] [place] [address] [place] [address] [facility] [address] [place] [address] Social History Tobacco Use Types Packs/Day Years Used Date Smoking Tobacco: Never Assessed Comments Unknown Sex and Gender Information Value Date Recorded Sex Assigned at Female 02/06/2023 4:09 PM HANDLE FINISHER Legal Sex Female 4:50 AM HANDLE FINISHER Gender Identity Female 02/06/2023 4:09 PM HANDLE FINISHER Sexual Orientation Straight 02/06/2023 4: 09 PM HANDLE FINISHER documented as of this encounter Plan of Treatment Upcoming Encounters Date Type Department Care Team (Late st Contact Info) Description 02/18/2025 1:30 PM HANDLE FINISHER Appointment [facility] [place] [address] [facility] [address] [place] [address] [place] [address] [facility] [address] [place] [phone] documented as of this encounter Visit Diagnoses Not on filedocumented in this encounter Care Teams Senior Database Administrator Relationship Specialty [place] [address] [facility] [address] [place] [address] PCP - General Family Practice 05/12/21 documented as of this encounter
--- OUTSIDE RECORDS SUMMARY | 2024-09-02 17:07 | XMS_ITS | Encounter Summary ---
Author Organization [facility] Address [address] [place] [address] Care Team Providers Care Director Marketing Name Role Phone Tatyana Cardona DO Primary Care Provider [phone]- [phone] Encounter Details Date Type Department Care Team (Latest Contact Info) Description 10/01/2002 Outpatient Historical [facility], [address] Jan Hanson MD [address] [facility] [address] [place] [address] ACUTE PHARYNGITIS (Primary Dx) Social History Tobacco Use Types Packs/Day Years Used Date Smoking Tobacco: Never Assessed Comments Unknown Sex and Gender Information Value Date Recorded Sex Assigned at Female 02/06/2023 4:09 PM CODING AUDITOR Legal Sex Female 4:50 AM CODING AUDITOR Gender Identity Female 02/06/2023 4:09 PM CODING AUDITOR Sexual Orientation Straight 02/06/2023 4: 09 PM CODING AUDITOR documented as of this encounter Plan of Treatment Upcoming Encounters Date Type Department Care Team (Late st Contact Info) Description 02/18/2025 1:30 PM CODING AUDITOR Appointment [facility] Family Medicine [place] [address] [facility] [address] [place] [address] [place] [address] [employer] [facility] [address] [place] [address] documented as of this encounter Visit Diagnoses Diagnosis Acute pharyngitis- Primary documented in this encounter Care Teams Director Marketing Relationship Specialty [place] [address] [address] [place] [address] PCP - General Family Practice 05/12/21 documented as of this encounter
--- OUTSIDE RECORDS SUMMARY | 2024-09-02 17:07 | XMS_ITS | Encounter Summary ---
Author Organization [facility] Address [address] [place] [address] Care Team Providers Care Product Design Specialist Name Role Phone Tatyana Cardona DO Primary Care Provider Encounter Details Date Type Department Care Team (Latest Contact Info) Description 02/03/2003 Outpatient Historical [facility] [place] [address] [address] [place] [address] SCREENING FOR VENERAL DIS (Primary Dx) Social History Tobacco Use Types Packs/Day Years Used Date Smoking Tobacco: Never Assessed Comments Unknown Sex and Gender Information Value Date Recorded Sex Assigned at Female 02/06/2023 4:09 PM DEAN Legal Sex Female 4:50 AM DEAN Gender Identity Female 02/06/2023 4:09 PM DEAN Sexual Orientation Straight 02/06/2023 4: 09 PM DEAN documented as of this encounter Plan of Treatment Upcoming Encounters Date Type Department Care Team (Late st Contact Info) Description 02/18/2025 1:30 PM DEAN Appointment [facility] Family Medicine [place] [address] [place] [address] [place] [address] [employer] [facility] [address] [place] [address] documented as of this encounter Visit Diagnoses Diagnosis Screening examination for venereal disease- Primary documented in this encounter Care Teams Product Design Specialist Relationship Specialty [place] [address] [facility] [address] [place] [address] PCP - General Family Practice 05/12/21 documented as of this encounter
--- OUTSIDE RECORDS SUMMARY | 2024-09-02 17:07 | XMS_ITS | Encounter Summary ---
Author Organization [facility] Address [address] [place] [address] Care Team Providers Care Creping Machine Operator Name Role Phone Tatyana Cardona DO Primary Care Provider [phone] Encounter Details Date Type Department Care Team (Late st Contact Info) Description 04/16/2005 Outpatient Historical [facility] Family Medicine [facility] [address] [place] [address] [place] [address] [place] [address] Social History Tobacco Use Types Packs/Day Years Used Date Smoking Tobacco: Never Assessed Comments Unknown Sex and Gender Information Value Date Recorded Sex Assigned at Female 02/06/2023 4:09 PM STEELSCOPE OPERATOR Legal Sex Female 4:50 AM STEELSCOPE OPERATOR Gender Identity Female 02/06/2023 4:09 PM STEELSCOPE OPERATOR Sexual Orientation Straight 02/06/2023 4: 09 PM STEELSCOPE OPERATOR documented as of this encounter Last Filed Vital Signs Vital Sign Reading Time Taken Comments Blood Pressure 126/80 04/16/2005 10:00 AM STEELSCOPE OPERATOR Pulse 84 04/16/2005 10:00 AM STEELSCOPE OPERATOR Temperature - - Respiratory Rate - - Oxygen Saturation - - Inhaled Oxygen Concentration - - Weight 118.8 kg (262 lb) 04/16/2005 10:00 AM STEELSCOPE OPERATOR Height - - Body Mass Index 41.65 03/27/2004 4:30 PM STEELSCOPE OPERATOR documented in this encounter Plan of Treatment Upcoming Encounters Date Type Department Care Team (Late st Contact Info) Description 02/18/2025 1:30 PM STEELSCOPE OPERATOR Appointment [facility] Medicine [place] [address] [place] [address] [place] [address] [facility] [address] [place] [address] documented as of this encounter Visit Diagnoses Not on filedocumented in this encounter Care Teams Creping Machine Operator Relationship Specialty [place] [address] [address] [place] [address] PCP - General Family Practice 05/12/21 documented as of this encounter
--- OUTSIDE RECORDS SUMMARY | 2024-09-02 17:08 | XMS_ITS | Encounter Summary ---
Author Organization [facility] Address [address] [place] [address] Care Team Providers Care Event Lighting Specialist Name Role Phone Tatyana Cardona DO Primary Care Provider Encounter Details Date Type Department Care Team (Late st Contact Info) Description 04/21/2007 Outpatient Historical [facility] [address] [employer] [address] [place] [address] [place] [address] [address] [place] [address] Social History Tobacco Use Types Packs/Day Years Used Date Smoking Tobacco: Never Assessed Comments Unknown Sex and Gender Information Value Date Recorded Sex Assigned at Female 02/06/2023 4:09 PM REGIONAL PLANNER Legal Sex Female 4:50 AM REGIONAL PLANNER Gender Identity Female 02/06/2023 4:09 PM REGIONAL PLANNER Sexual Orientation Straight 02/06/2023 4: 09 PM REGIONAL PLANNER documented as of this encounter Plan of Treatment Upcoming Encounters Date Type Department Care Team (Late Contact Info) Description 02/18/2025 1:30 PM REGIONAL PLANNER [facility]ointment [facility] [address] [place] [address] [place] [address] [facility] [address] [place] [address] documented as of this encounter Visit Diagnoses Not on filedocumented in this encounter Care Teams Event Lighting Specialist Relationship Specialty [place] [address] [facility] [address] [place] [address] PCP - General Family Practice 05/12/21 documented as of this encounter
--- OUTSIDE RECORDS SUMMARY | 2024-09-02 17:08 | XMS_ITS | Clinical Summary ---
Author Organization [facility] Address [address] [place] [address] Care Team Providers Care Final Assembler Boat Name Role Phone Tatyana Cardona DO Primary Care Provider Allergies Active Allergy Reactions Criticality Noted Date Comments Lansoprazole Other (See Comments) 09/21/2003 Hair loss Medications cetirizine (ZyrTEC) 10 mg tablet Take 10 mg by mouth daily. Active ketotifen (ZADITOR) 0.025% solution Administer 1 Drop in both eyes. 08/03/19 16 Active albuterol HFA 90 mcg inhaler Take 2 Puffs by inhalation every 6 hours as needed for Shortness of Breath or Wheezing. 8.5 Gram 1 08/21/19 17 Active carboxymethylcellu lose sodium (REFRESH CELLUVISC OP) by Ophthalmic route. Active balanced salt solution non-surgical (EYE STREAM) solution 30 mL one time only. Active triamcinolone acetonide (KENALOG) 0.1 % Cream APPLY THIN LAYER TOPICALLY TO THE AFFECTED AREA TWICE DAILY 12/31/19 21 Active ergocalciferol (VITAMIN D2) 50,000 unit capsule Take 1 Capsule by mouth every 7 days. 12/08/19 23 Active terbinafine HCL (LamISIL) 250 mg tablet Take 1 Tablet by mouth daily. 07/11/19 24 Active OTHER Topic cream, Alclometasone on her lips Active DULoxetine (CYMBALTA) 30 mg Capsule, Delayed Release(E.C.)Indic ations:Primary osteoarthritis of both knees Take 1 Capsule (30 mg) by mouth daily. 90 Capsule 1 06/06/19 Active meloxicam (MOBIC) 15 mg tabletIndications: Primary osteoarthritis of both knees Take 1 Tablet (15 mg) by mouth daily. 90 Tablet 06/06/19 Active Active Problems Patient Care Coordination No te Formatting of this note migh t be different from the original. Resident PCP - Tiny Jimenez MD Problem Noted Date Diagnosed Date Primary osteoarthritis of right knee 08/14/2023 Low serum thyroid stimulating hormone (TSH) 03/2021 Prediabetes 04/12/2021 Astigmatism 02/08/2021 Chronic allergic conjunctivitis 02/08/2021 Episcleritis 02/08/2021 Presbyopia 02/08/2021 Osteoarthritis of left knee 04/01/2017 Morbid obesity 03/27/2004 Esophageal reflux 09/21/2003 Resolved Problems Problem Noted Date Diagnosed Date Resolved Date Acute serous otitis media 04/21/2007 Chest pain, unspecified 02/17/200702/11 Bacterial pneumonia, unspecified 12/25/2006 05/05/2008 Cough 12/18/2006 05/05/2008 Dysuria 05/23/2006 05/05/2008 Chronic pharyngitis 11/12/2005 05/06/19 09 Infectious colitis, enteriti s, and gastroenteritis 04/16/2005 05/05/2008 Pain in joint, lower leg 12/21/2004 Family history of ischemic heart disease 09/18/2004 04/01/2017 Conjunctivitis unspecified 03/27/2004 0 05/05/2008 Routine general medical exam ination at a health care facility 03/27/2004 02/26/2010 ALLERGIC RHINITIS NOS 09/21/20032013 Contact dermatitis and other eczema, due to unspecified cause 09/21/2003 05/05/2008 Acute conjunctivitis, unspecified 02/11/2003 05/05/2008 Urogenital trichomoniasis, unspecified 04/11/2002 05/05/2008 CHOLELITHIASIS NOS 02/11/2001 4 Encounters Date Type Department Care Team Description 08/26/2024 External Device Data ST[facility] ABSTRACTION Provider, Abstract 08/25/2024 External Device Data [facility] ABSTRACTION Provider, Abstract 08/04/2024 External Device Data [facility] ABSTRACTION Provider, Abstract 07/01/2024 External Device Data [facility] ABSTRACTION Provider, Abstract 06/30/2024 External Device Data ST[facility] ABSTRACTION Provider, Abstract 06/17/2024 Abstract [facility] [place] [address] [place] [address] Tatyana Cardona DO 06/05/2024 1:30 PM CDT Office Visit [facility] [place] [address] [place] [address] Montrell Hernadez MD Primary osteoarthritis of both knees (Primary Dx); Morbid obesity with BMI of 50.0-59.9, adult ([facility]); Screening mammogram, encounter for from Last 3 Months Immunizations Immunization Administration Dates Next Due (ADACEL/BOOSTRIX)(10 YR UP) TDAP VACCINE, 0.5ML, IM 04/01/2017,10/19/2010 Skin Test TB 09/03/2018,01/08/2018 Family History Medical History Relation Name Comments High Cholesterol Brother 1 Esteban High Cholesterol Brother 2 Esteban Diabetes Mother Kierra Hypertension Mother Kierra Diabetes Sister Laurita Hypertension Sister Laurita Breast Cancer Neg Hx Colon Cancer Neg Hx Ovarian Cancer Neg Hx Relation Name Status Comments Brother 1 Esteban Brother 2 Esteban Alive Father Mother Kierra Alive Sister Laurita Social History Tobacco Use Types Packs/Day Years Used Date Smoking Tobacco: Never Passive Smoke Exposure: Never Smokeless Tobacco: Never Tobacco Cessation:Counseling Given: No Alcohol Use Standard Drinks/Week Comments Not Currently 0 (1 standard drink = 0.6 oz pur e alcohol) rarely, 1-2x/year Comments No Sex and Gender Information Value Date Recorded Sex Assigned at Female 02/06/2023 4:09 PM BIAS MACHINE OPERATOR Legal Sex Female 4:50 AM BIAS MACHINE OPERATOR Gender Identity Female 02/06/2023 4:09 PM BIAS MACHINE OPERATOR Sexual Orientation Straight 02/06/2023 4: 09 PM BIAS MACHINE OPERATOR Occupation Industry Job Start Date Job End Date Not on file Not on file Not on file Not on file Last Filed Vital Signs Vital Sign Reading Time Taken Comments Blood Pressure 122/78 06/05/2024 1:40 PM CDT Pulse 80 06/05/2024 1:40 PM CDT Temperature 36.4 C (97.5 F) 06/05/2024 1:40 PM CDT Respiratory Rate 16 06/05/2024 1:40 PM CDT Oxygen Saturation 98% 06/05/2024 1:40 PM CDT Inhaled Oxygen Concentration - - Weight 137.4 kg (303 lb) 06/05/2024 1:40 PM CDT Height 168.9 cm (5' 6.5) 06/05/2024 1:40 PM CDT Body Mass Index 48.17 06/05/2024 1:40 PM CDT Plan of Treatment Upcoming Encounters Date Type Department Care Team (Late st Contact Info) Description 02/18/2025 1:30 PM BIAS MACHINE OPERATOR Appointment [facility] [place] [address] [employer] [address] [address] [place] [address] [employer] [facility] [address] [place] [address] Health Maintenance Due Date Last Done Comments HPV/Cotest (21-29) 1981 HPV/Cotest (30-) 1990 FIT-DNA Q 3 years 2005 Flex Sig/CT Colonography Q 5 years 2005 ZOSTER VACCINE (1 of 2) 2010 RSV VACCINE (60+ or ) (1 - Risk 60-74 years 1-dose series) 2020 FIT/FOBT Q 1 year 09/07/2022 09/07/2021 Preventative Visit- Commercial 02/12/2024 1 , 02/07/2022, 02/08/2021, Additional history exists INFLUENZA VACCINE (#1) 2024 , 12/06/2022, 01/23/2021 BREAST CANCER SCREENING 02/08/2025 02/09/20 23, 09/08/2021, 09/24/2019, Additional history exists CERVICAL CANCER SCREENING 10/11/2025 PAP SMEAR 10/11/2025 10/11/2022 (Prev iously completed), 05/17/2015 (Previously completed) Pre-Diabetes and Diabetes Screening 02/13/2027 02/14/2024, 02/08/2023, 02/07/2022, Additional history exists DTAP/TDAP/TD VACCINES (3 - T d or Tdap) 04/01/2027 04/01/2017, 10/19/2010 COLORECTAL SCREENING 05/08/2033 2023, 2023, 02/01/2012, Additional history exists Colorectal Cancer Screening 05/08/2033 Procedures Procedure Name Priority Date/Time Associated Diagnosis Comments HEMOGLOBIN A1C Routine 02/14/2024 3:23 PM BIAS MACHINE OPERATOR Encounter for routine adult health examination without abnormal findings COLONOSCOPY REPORT 2023 9: 44 AM CDT MAMMO 3D JOSEPH SCREEN BILAT W OR WO CAD Routine 02/08/2023 11:18 AM BIAS MACHINE OPERATOR Screening mammogram, encounter for OCCULT BLOOD IMMUNOASSAY, COLORECTAL SCREEN Routine 09/07/2021 12:00 AM CDT Screening for colorectal cancer from Last 3 Months or Most Recently Relevant to Health Maintenance Results * (ABNORMAL) HEMOGLOBIN A1C (02/14/2024 3:23 PM BIAS MACHINE OPERATOR) HEMOGLOBIN A1C 6.0(H) <5.7 % of total Hgb [facility] Comment: For someone without known diabetes, a hemoglobin A1c value between 5.7% and 6.4% is consistent with prediabetes and should be confirmed with a follow-up test. For someone with known diabetes, a value <7% indicates that their diabetes is well controlled. A1c targets should be individualized based on duration of diabetes, age, comorbid conditions, and other considerations. This assay result is consistent with an increased risk of diabetes. Currently, no consensus exists regarding use of hemoglobin A1c for diagnosis of diabetes for children. ESTIMATED AVERAGE GLUCOSE (MG/DL) 126 mg/dL [facility] ESTIMATED AVERAGE GLUCOSE (MMOL/L) 7.0 mmol/L [facility] Comment: FASTING:YES FASTING: YES Test Performed at: [facility] [address] [address] [place] [address] Renata Liriano Vo Blood 02/14/2024 3:23 PM BIAS MACHINE OPERATOR 02/14/2024 3:25 PM BIAS MACHINE OPERATOR Tatyana Cardona DO CHEMISTRY ORDERABLES Final Result [facility] [phone] [facility] [address] [address] [place], [place] [address] * COLONOSCOPY REPORT (2023 9:44 AM CDT) Narrative Procedure Note Loretta Zambrano DO - 2023 9:44 AM CDT [facility] Endoscopy Patient Name: Jayne Kennedy Procedure Date: 2023 Date of : 1960 Attending MD: Loretta Zambrano MD, Procedure: Colonoscopy Indications: Screening for colorectal malignant neoplasm, Last colonoscopy: January 2012 Providers: Loretta Zambrano MD Referring MD: Tatyana Cardona Medicines: Monitored Anesthesia Care Complications: No immediate complications. Procedure: Informed consent was obtained for the procedure, including moderate sedation after risks were discussed. Based on the pre-procedure assessment, including review of the patient's medical history, medications, allergies, and review of systems, the patient was deemed to be an appropriate candidate for sedation. A timeout was performed. Continuous ECG monitoring, pulse oximetry, blood pressure monitoring, and direct observation were performed. The Colonoscope was introduced through the anus and advanced to the terminal ileum. The colonoscopy was performed without difficulty. The patient tolerated the procedure well. The quality of the bowel preparation was good. Anatomical landmarks were photographed. Estimated Blood Loss: Estimated blood loss was minimal. Findings: The perianal examination was normal. Retroflexion in the right colon was performed. The terminal ileum appeared normal. No additional abnormalities were found on retroflexion. A few diverticula were found in the sigmoid colon and descending colon. Impression: - The examined portion of the ileum was normal. - Diverticulosis in the sigmoid colon and in the descending colon. - No specimens collected. Recommendation: - Repeat colonoscopy in 10 years for screening purposes. - High fiber diet. Loretta Zambrano MD 2023 9:44:29 AM This report has been signed electronically. Number of Addenda: [address]; [place] [address] Loretta Zambrano DO GI PROCEDURE ORDERABLES Fin al Result * MAMMO SCRN BILAT 3D JOSEPH W OR WO CAD (02/08/2023 11:18 AM BIAS MACHINE OPERATOR) Anatomical Region Laterality Modality Breast Bilateral Mammography 02/08/2023 11:1 9 AM BIAS MACHINE OPERATOR Impressions 02/08/2023 2:50 PM BIAS MACHINE OPERATOR IMPRESSION: No mammographic evidence of malignancy. OVERALL FINAL ASSESSMENT: BI-RADS Category 1: Negative mammogram. RECOMMENDATION: Bilateral screening mammogram in one year. DICTATION LOCATION: [facility] 02/08/2023 2:50 PM BIAS MACHINE OPERATOR BILATERAL SCREENING DIGITAL MAMMOGRAM WITH 3D TOMOSYNTHESIS AND CAD DATE: 02/08/2023 11:18 AM COMPARISON: Multiple prior mammograms, dating back to 05/02/2017 and most recently 09/08/2021. HISTORY: Screening mammogram. TECHNIQUE: Low-dose full-field digital breast tomosynthesis examination was performed with 2D and 3D acquisitions. Examination is read in conjunction with computer aided detection. BREAST COMPOSITION: The breasts are almost entirely fatty. FINDINGS: There is no suspicious mass, clustered microcalcification, or architectural distortion in either breast on 2D or 3D images. There has been no change in the mammographic appearance compared with the prior study. Procedure Note Del Herrera MD - 02/08/2023 BILATERAL SCREENING DIGITAL MAMMOGRAM WITH 3D TOMOSYNTHESIS AND CAD DATE: 02/08/2023 11:18 AM COMPARISON: Multiple prior mammograms, dating back to 05/02/2017 and most recently 09/08/2021. HISTORY: Screening mammogram. TECHNIQUE: Low-dose full-field digital breast tomosynthesis examination was performed with 2D and 3D acquisitions. Examination is read in conjunction with computer aided detection. BREAST COMPOSITION: The breasts are almost entirely fatty. FINDINGS: There is no suspicious mass, clustered microcalcification, or architectural distortion in either breast on 2D or 3D images. There has been no change in the mammographic appearance compared with the prior study. IMPRESSION: No mammographic evidence of malignancy. OVERALL FINAL ASSESSMENT: BI-RADS Category 1: Negative mammogram. RECOMMENDATION: Bilateral screening mammogram in one year. DICTATION LOCATION: [facility] Blaise Molina MD MAMMO ORDERABLES Final Resul t * OCCULT BLOOD IMMUNOASSAY, COLORECTAL SCREEN (09/07/2021 12:00 AM CDT) FECAL GLOBIN SEE NOTE [facility] Comment: FECAL GLOBIN BY IMMUNOCHEMISTRY Micro Number: [id number] Test Status: Final Specimen Source: Stool Specimen Quality: Adequate Fecal Globin: Not Detected Test [facility]formed at: [facility] [address] [place] [address] Ben Gómez D.O., MPH Stool STOOL SPECIMEN / Unknown 09/07/2021 09/12/2021 2:33 PM CDT Jasen Newberry DO BODY FLUIDS AND STOOLS Final Result [facility] [phone] [facility] [address] [place] [address] from Last 3 Months or Most Recently Relevant to Health Maintenance Insurance BCBS BLUE ACCESS/TRUE BLUE PPO RX [employer] Commercial Advance Directives For more information, please contact: [phone] * Full Code (Latest Code Status on File) Date Activated Date Inactivated Comments 2023 8:38 AM 2023 12:27 PM * Full Code Date Activated Date Inactivated Comments 02/01/2012 11:25 AM 02/01/2012 4:17 PM Care Teams Final Assembler Boat Relationship Specialty Start [place] [address] [address] PCP - General Family Practice 05/12/21
--- OUTSIDE RECORDS SUMMARY | 2024-09-02 17:08 | XMS_ITS | Encounter Summary ---
Author Organization [facility] Address [address] [place] [address] Care Team Providers Care Consultant Teacher Name Role Phone Tatyana Cardona DO Primary Care Provider Encounter Details Date Type Department Care Team (Late st Contact Info) Description 04/21/2007 Orders Only [facility] Family Medicine [facility] [address] [address] [place] [address] Priti Rojas MD [address] [facility] [place] [address] Social History Tobacco Use Types Packs/Day Years Used Date Smoking Tobacco: Never Assessed Comments Unknown Sex and Gender Information Value Date Recorded Sex Assigned at Female 02/06/2023 4:09 PM FOOD CHECKER Legal Sex Female 4:50 AM FOOD CHECKER Gender Identity Female 02/06/2023 4:09 PM FOOD CHECKER Sexual Orientation Straight 02/06/2023 4: 09 PM FOOD CHECKER documented as of this encounter Progress Notes * Priti Rojas MD - 07/17/2007 5:52 PM CDT NURSE NAME: Juanita Bergeron R WEIGHT: 277lbs. BLOOD PRESSURE: 124/86. Left Arm Sitting PULSE: 72. Left Radial, Regular ALLERGIES: No known drug allergies. TOBACCO USE: Patient does not currently use tobacco. CHIEF COMPLAINT Complains of dizziness.mercy/est HISTORY: 3 days of dizziness with progressively worsening left ear pain. pt states the pain in the ear was mild and is now moderate. Over the weekend, the pt was so dizzy that the room was spinning. At that point, she called the exchange and was started on meclizine. The pt states that has helped some. Pt is more concerned with the ear pain at this point that is throbbing in nature and constant. Pt notes no decreased hearing . PHYSICAL EXAMINATION: CONSTITUTIONAL: GENERAL APPEARANCE: Healthy appearing patient in no distress. EARS, NOSE, MOUTH AND THROAT: EARS: BULGING TYMPANIC MEMBRANE NOTED IN THE LEFT EAR, LEFT TYMPANIC MEMBRANE INFLAMED. canal erythematous distally RESPIRATORY: Clear to auscultation and percussion. Normal respiratory effort. CARDIOVASCULAR: CARDIAC: Regular rhythm. No murmurs, rubs, or gallops. ASSESSMENT/PLAN: 381.01-OTITIS MEDIA ACUTE SEROUS ASSESSMENT: pt with vertigo as well, likely result of the infection. Pt can cont prn meclizine. MEDICATIONS: AMOXICILLIN ORAL TABLET 500 MG, 1 po bid for 7 days, 14 Dispensed, 7 Duration/Days Supply, status: NEW PRESCRIPTION, 04/21/2007. RETURN VISIT: Instructed to call if not improving. 04/23/07 11:02 a Electronically signed by Priti Rojas MD. TEACHING PHYSICIAN COMMENTS: I have reviewed the resident's note and I agree with the resident's evaluation and plan. Electronically Signed by: Blaise Molina MD on April * Priti Rojas MD - 07/17/2007 5:52 PM CDT [facility] DEPT [place] [address] [place] [address] April 21, 2007 GREGORIO ARRIAGA [address] [place] [address] Dear Ms. Arriaga: Your recent test(s) showed the following: MAMMOGRAM - normal limits. RECOMMENDATIONS: yearly follow up Sincerely yours, PRITI ROJAS MD documented in this encounter Plan of Treatment Upcoming Encounters Date Type Department Care Team (Late st Contact Info) Description 02/18/2025 1:30 PM FOOD CHECKER Appointment [facility] Medicine [place] [address] [address] [place] [address] [place] [address] [facility] [address] [place] [address] documented as of this encounter Visit Diagnoses Not on filedocumented in this encounter Care Teams Consultant Teacher Relationship Specialty Start [place] [address] [address] [place] [address] PCP - General Family Practice 05/12/21 documented as of this encounter
--- OUTSIDE RECORDS SUMMARY | 2024-09-02 17:08 | XMS_ITS | Encounter Summary ---
Author Organization [facility] Address [address] [place] [address] Care Team Providers Care Fisherman Helper Name Role Phone Tatyana Cardona DO Primary Care Provider Encounter Details Date Type Department Care Team (Late st Contact Info) Description 05/28/2008 Outpatient Historical [facility] Teofilo Lerma MD NO ADDRESS ON FILE Social History Tobacco Use Types Packs/Day Years Used Date Smoking Tobacco: Never Alcohol Use Standard Drinks/Week Comments Yes 0 (1 standard drink = 0.6 oz pur e alcohol) rarely Comments No Sex and Gender Information Value Date Recorded Sex Assigned at Female 02/06/2023 4:09 PM REGULATORY LEADER Legal Sex Female 4:50 AM REGULATORY LEADER Gender Identity Female 02/06/2023 4:09 PM REGULATORY LEADER Sexual Orientation Straight 02/06/2023 4: 09 PM REGULATORY LEADER documented as of this encounter Plan of Treatment Upcoming Encounters Date Type Department Care Team (Late st Contact Info) Description 02/18/2025 1:30 PM REGULATORY LEADER Appointment [facility] Family Medicine [place] [address] [place] [address] [place] [address] [facility] [address] [place] [address] documented as of this encounter Visit Diagnoses Not on filedocumented in this encounter Care Teams Fisherman Helper Relationship Specialty [place] [address] [facility] [address] [place] [address] PCP - General Family Practice 05/12/21 documented as of this encounter
--- OUTSIDE RECORDS SUMMARY | 2024-09-02 17:08 | XMS_ITS | Encounter Summary ---
Author Organization [facility] Address [address] [place] [address] Care Team Providers Care Radiation Oncologist Name Role Phone Tatyana Cardona DO Primary Care Provider Encounter Details Date Type Department Care Team (Late st Contact Info) Description 07/04/1999 Outpatient Historical [facility] DEPT [place] [address] [address] [place] [address] Social History Tobacco Use Types Packs/Day Years Used Date Smoking Tobacco: Never Assessed Comments Unknown Sex and Gender Information Value Date Recorded Sex Assigned at Female 02/06/2023 4:09 PM SITE DIRECTOR Legal Sex Female 4:50 AM SITE DIRECTOR Gender Identity Female 02/06/2023 4:09 PM SITE DIRECTOR Sexual Orientation Straight 02/06/2023 4: 09 PM SITE DIRECTOR documented as of this encounter Plan of Treatment Upcoming Encounters Date Type Department Care Team (Late Contact Info) Description 02/18/2025 1:30 PM SITE DIRECTOR Appointment [facility] Family Medicine [place] [address] [place] [address] [place] [address] [place] [address] documented as of this encounter Visit Diagnoses Not on filedocumented in this encounter Care Teams Radiation Oncologist Relationship Specialty Start [place] [address] [address] PCP - General Family Practice 05/12/21 documented as of this encounter
--- OUTSIDE RECORDS SUMMARY | 2024-09-02 17:08 | XMS_ITS | Encounter Summary ---
Author Organization [facility] Address [address] [place] [address] Care Team Providers Care Cable Tv Installer Name Role Phone Tatyana Cardona DO Primary Care Provider Encounter Details Date Type Department Care Team (Latest Contact Info) Description 06/07/2008 Outpatient Historical [facility] Teofilo Lerma MD NO ADDRESS ON FILE Other Screening Mammogram Social History Tobacco Use Types Packs/Day Years Used Date Smoking Tobacco: Never Alcohol Use Standard Drinks/Week Comments Yes 0 (1 standard drink = 0.6 oz pur e alcohol) rarely Comments No Sex and Gender Information Value Date Recorded Sex Assigned at Female 02/06/2023 4:09 PM SALES AGENT INSURANCE Legal Sex Female 4:50 AM SALES AGENT INSURANCE Gender Identity Female 02/06/2023 4:09 PM SALES AGENT INSURANCE Sexual Orientation Straight 02/06/2023 4: 09 PM SALES AGENT INSURANCE documented as of this encounter Plan of Treatment Upcoming Encounters Date Type Department Care Team (Late st Contact Info) Description 02/18/2025 1:30 PM SALES AGENT INSURANCE Appointment [facility] Family Medicine Jazz [place] [address] [place] [address] [place] [address] [address] [place] [address] documented as of this encounter Procedures Procedure Name Priority Date/Time Associated Diagnosis Comments ECHO STRESS TEST EXERCISE WO ECG Routine 06/07/2008 3:49 PM CDT documented in this encounter Results * ECHOCARDIOGRAM STRESS TEST (06/07/2008 3:49 PM CDT) Narrative INTERFACE SYSTEM - 06/07/2008 3:49 PM CDT [facility] [address] [place] [address] [email or web address] Stress Study Patient: Jayne Jarvis MRN: Study ID: ADULT STRESS ECH Gender: F : 1960 Age: 48 years Race: 2 Room: Bed: Height: Study Date: June 07, 2008 Patient status: Outpatient Weight: Access. #: [id number] POC: Ordering: Andrea Attending MD: Andrea Admitting MD: Andrea Study Conclusions: SUMMARY - Stress results : Duration of exercise was 4 min and 1 sec. Functional capacity was slightly decreased (20% to 30%). Target heart rate was achieved. There was no chest pain during stress. - Baseline : Estimated left ventricular ejection fraction was in the range of 55 % to 65 %. IMPRESSIONS - Normal study after maximal exercise without reproduction of symptoms. History and indications - Detection of coronary artery disease. REST ECG - Normal sinus rhythm. - Normal baseline ECG. Treadmill exercise testing was performed, using the Bulmaro protocol. Stress and rest echocardiographic evaluation was performed from multiple acoustic windows for evaluation of ventricular function. Stress results Bulmaro protocol HR bpm SBP mmHg DBP mmHg Symptoms ST change Rhythm/conduct Baseline 100 115 71 none none NSR, no ectopy Peak 158 161 52 none none NSR, no ectopy Recovery 1 112 148 86 none none NSR, no ectopy STRESS TEST DATA - No medications or fluids given. STRESS RESULTS - Duration of exercise was 4 min and 1 sec. - The patient exercised to protocol stage 2. - Maximal work rate was 7 METs. - Functional capacity was slightly decreased (20% to 30%). - Maximal heart rate during stress was 158 bpm ( 92 % of maximal predicted heart rate). - The heart rate response to stress was normal. - There was normal resting blood pressure with an appropriate response to stress. - The rate-pressure product for the peak heart rate and blood pressure was [address]. - There was no chest pain during stress. - The stress test was terminated due to achievement of maximal (symptom limited) exercise. - There were no stress arrhythmias or conduction abnormalities. Imaging data STRESS 2D ECHOCARDIOGRAPHIC RESULTS Baseline: - There were no left ventricular regional wall motion abnormalities at baseline. - Left ventricular size was normal. - Overall left ventricular systolic function was normal. - Estimated left ventricular ejection fraction was in the range of 55 % to 65 %. Peak stress: - There were no left ventricular regional wall motion abnormalities at peak stress. - There was an appropriate reduction in left ventricular size. - There was an appropriate augmentation in LV function. Prepared and Electronically Authenticated Sundeep Mendes Confirmed June 07, 2008 15:42:32 Procedure Note Provider, Historical - 06/07/2008 [address] [place] [address] [place] [address] [email or web address] Stress Study Patient: Jayne Jarvis MRN: Study ID: ADULT STRESS ECH Gender: F : 1960 Age: 48 years Race: 2 Room: Bed: Height: Study Date: June 07, 2008 Patient status: Outpatient Weight: Access. #: [id number] POC: Ordering: Andrea Attending MD: Andrea Admitting MD: Andrea Study Conclusions: SUMMARY - Stress results : Duration of exercise was 4 min and 1 sec. Functional capacity was slightly decreased (20% to 30%). Target heart rate was achieved. There was no chest pain during stress. - Baseline : Estimated left ventricular ejection fraction was in therange of 55 % to 65 %. IMPRESSIONS - Normal study after maximal exercise without reproduction of symptoms. History and indications - Detection of coronary artery disease. REST ECG - Normal sinus rhythm. - Normal baseline ECG. Treadmill exercise testing was performed, using the Bulmaro protocol.Stress and rest echocardiographic evaluation was performed from multipleacoustic windows for evaluation of ventricular function. Stress results Bulmaro protocol HR bpm SBP mmHg DBP mmHg Symptoms ST change Rhythm/conduct Baseline 100 115 71 none none NSR, no ectopy Peak 158 161 52 none none NSR, no ectopy Recovery 1 112 148 86 none none NSR, no ectopy STRESS TEST DATA - No medications or fluids given. STRESS RESULTS - Duration of exercise was 4 min and 1 sec. - The patient exercised to protocol stage 2. - Maximal work rate was 7 METs. - Functional capacity was slightly decreased (20% to 30%). - Maximal heart rate during stress was 158 bpm ( 92 % of maximalpredicted heart rate). - The heart rate response to stress was normal. - There was normal resting blood pressure with an appropriate responseto stress. - The rate-pressure product for the peak heart rate and blood pressurewas 11866. - There was no chest pain during stress. - The stress test was terminated due to achievement of maximal (symptom limited) exercise. - There were no stress arrhythmias or conduction abnormalities. Imaging data STRESS 2D ECHOCARDIOGRAPHIC RESULTS Baseline: - There were no left ventricular regional wall motion abnormalities at baseline. - Left ventricular size was normal. - Overall left ventricular systolic function was normal. - Estimated left ventricular ejection fraction was in the range of 55 %to 65 %. Peak stress: - There were no left ventricular regional wall motion abnormalities at peak stress. - There was an appropriate reduction in left ventricular size. - There was an appropriate augmentation in LV function. Prepared and Electronically Authenticated Sundeep Mendes Confirmed June 07, 2008 15:42:32 Teofilo Lerma MD ORDERABLES Final Result INTERFACE SYSTEM Refer to clinic/hospital department documented in this encounter Visit Diagnoses Diagnosis Other screening mammogram documented in this encounter Care Teams Cable Tv Installer Relationship Specialty [place] [address] [address] PCP - General Family Practice 05/12/21 documented as of this encounter
--- OUTSIDE RECORDS SUMMARY | 2024-09-02 17:08 | XMS_ITS | Encounter Summary ---
Author Organization [facility] Address [address] [place] [address] Care Team Providers Care Heat Treat Operator Name Role Phone Tatyana Cardona DO Primary Care Provider Encounter Details Date Type Department Care Team (Late st Contact Info) Description 02/17/2007 Outpatient Historical [facility] Family Medicine [facility] [address] [place] [address] Priti Mahmood MD [address] [facility] [place] [address] Social History Tobacco Use Types Packs/Day Years Used Date Smoking Tobacco: Never Assessed Comments Unknown Sex and Gender Information Value Date Recorded Sex Assigned at Female 02/06/2023 4:09 PM MANUSCRIPT EDITOR Legal Sex Female 4:50 AM MANUSCRIPT EDITOR Gender Identity Female 02/06/2023 4:09 PM MANUSCRIPT EDITOR Sexual Orientation Straight 02/06/2023 4: 09 PM MANUSCRIPT EDITOR documented as of this encounter Last Filed Vital Signs Vital Sign Reading Time Taken Comments Blood Pressure 116/86 02/17/2007 4:30 PM MANUSCRIPT EDITOR Pulse 80 02/17/2007 4:30 PM MANUSCRIPT EDITOR Temperature - - Respiratory Rate - - Oxygen Saturation - - Inhaled Oxygen Concentration - - Weight 123.4 kg (272 lb) 02/17/2007 4:30 PM MANUSCRIPT EDITOR Height - - Body Mass Index 43.24 03/27/2004 4:30 PM MANUSCRIPT EDITOR documented in this encounter Plan of Treatment Upcoming Encounters Date Type Department Care Team (Late st Contact Info) Description 02/18/2025 1:30 PM MANUSCRIPT EDITOR Appointment [facility] Medicine Jazz Hood [address] [place] [address] [place] [address] [address] [place] [address] documented as of this encounter Visit Diagnoses Not on filedocumented in this encounter Care Teams Heat Treat Operator Relationship Specialty [place] [address] [address] [place] [address] PCP - General Family Practice 05/12/21 documented as of this encounter
--- OUTSIDE RECORDS SUMMARY | 2024-09-02 17:08 | XMS_ITS | Encounter Summary ---
Author Organization [facility] Address [address] [place] [address] Care Team Providers Care Winery Worker Name Role Phone Tatyana Cardona DO Primary Care Provider Encounter Details Date Type Department Care Team (Late st Contact Info) Description 04/21/2007 [facility] [address] [place] [address] Priti Mahmood MD [address] [facility] [place] [address] Social History Tobacco Use Types Packs/Day Years Used Date Smoking Tobacco: Never Assessed Comments Unknown Sex and Gender Information Value Date Recorded Sex Assigned at Female 02/06/2023 4:09 PM STRAW HAT BRIM CUTTER OPERATOR Legal Sex Female 4:50 AM STRAW HAT BRIM CUTTER OPERATOR Gender Identity Female 02/06/2023 4:09 PM STRAW HAT BRIM CUTTER OPERATOR Sexual Orientation Straight 02/06/2023 4: 09 PM STRAW HAT BRIM CUTTER OPERATOR documented as of this encounter Plan of Treatment Upcoming Encounters Date Type Department Care Team (Late st Contact Info) Description 02/18/2025 1:30 PM STRAW HAT BRIM CUTTER OPERATOR Appointment [facility] Jazz [place] [address] [place] [address] [place] [address] [facility] [address] [place] [address] documented as of this encounter Visit Diagnoses Not on filedocumented in this encounter Care Teams Winery Worker Relationship Specialty [place] [address] [facility] [address] [place] [address] PCP - General Family Practice 05/12/21 documented as of this encounter
--- OUTSIDE RECORDS SUMMARY | 2024-09-02 17:08 | XMS_ITS | Encounter Summary ---
Author Organization [facility] Address [address] [place] [address] Care Team Providers Care Mine Captain Name Role Phone Tatyana Cardona DO Primary Care Provider Encounter Details Date Type Department Care Team (Latest Contact Info) Description 03/05/2008 Outpatient Historical [facility] May Maria MD [address] [place] [address] Other Screening Mammogram Social History Tobacco Use Types Packs/Day Years Used Date Smoking Tobacco: Never Assessed Comments Unknown Sex and Gender Information Value Date Recorded Sex Assigned at Female 02/06/2023 4:09 PM RELATIONSHIP ASSOC Legal Sex Female 4:50 AM RELATIONSHIP ASSOC Gender Identity Female 02/06/2023 4:09 PM RELATIONSHIP ASSOC Sexual Orientation Straight 02/06/2023 4: 09 PM RELATIONSHIP ASSOC documented as of this encounter Plan of Treatment Upcoming Encounters Date Type Department Care Team (Late st Contact Info) Description 02/18/2025 1:30 PM RELATIONSHIP ASSOC Appointment [facility] Family Medicine Jazz [place] [address] [facility] [address] [place] [address] [place] [address] [facility] [address] [place] [address] documented as of this encounter Procedures Procedure Name Priority Date/Time Associated Diagnosis Comments MAMMO SCREEN BILAT W OR WO CAD Routine 03/05/2008 4:58 PM RELATIONSHIP ASSOC documented in this encounter Results * MAMMO DIGITAL SCREEN BILAT (03/05/2008 4:58 PM RELATIONSHIP ASSOC) Anatomical Region Laterality Modality Breast Bilateral Other 03/05/2008 4:58 PM RELATIONSHIP ASSOC Narrative 03/08/2008 1:38 PM RELATIONSHIP ASSOC [place] [address] [place], [place] [address] Admit Date: 03/05/2008 JAYNE ARRIAGA Sex: F Admit Prov: MAY ESPARZA Date: 1960 Primary Care Prov: FREYA BOLES CMRN: [id number] Room: [facility] SSN: [id number] IMAGING SERVICES Ordering Prov: MAY ESPARZA Bryant Accession Number: [id number] Interpretation BILATERAL FULL FIELD DIGITAL SCREENING MAMMOGRAM WITH CAD. Date: 03/05/08 History: Routine Screening. Technique: Full field digital craniocaudal and mediolateral oblique projections of both breasts were obtained. Computer aided diagnosis was performed. Comparison: 02/2007, 12/2005, 08/2002 Breast Parenchymal Composition: Scattered fibroglandular densities. Findings: No suspicious mass, suspicious microcalcifications, or architectural distortion in either breast is identified. Since the prior study, there has been no significant interval change. The computer aided diagnosis detects no significant abnormality. Overall Assessment: BI-RADS category 1: Negative. Recommendation: Annual mammography is recommended. Assessment BIRADS: 1-Negative Recommendation: Normal interval follow-up Dictated by: ELIZABETH RIVERA Electronically signed by: ELIZABETH RIVERA 03/08/2008 13:36 Transcribed: 03/08/2008 09:48 AMK Procedure Note Elizabeth Rivera - 03/08/2008 [facility] [address] [place], [place] [address] Admit Date: 03/05/2008 JAYNE ARRIAGA Sex: F Admit Prov: MAY ESPARZA Date: 1960 Primary Care Prov: FREYA BOLES CMRN: [id number] Room: [facility] SSN: [id number] IMAGING SERVICES Ordering Prov: MAY ESPARZA Interpretation BILATERAL FULL FIELD DIGITAL SCREENING MAMMOGRAM WITH CAD. Date: 03/05/08 History: Routine Screening. Technique: Full field digital craniocaudal and mediolateral oblique projections of both breasts were obtained. Computer aided diagnosiswas performed. Comparison: 02/2007, 12/2005, 08/2002 Breast Parenchymal Composition: Scattered fibroglandular densities. Findings: No suspicious mass, suspicious microcalcifications, or architectural distortion in either breast is identified. Since theprior study, there has been no significant interval change. The computeraided diagnosis detects no significant abnormality. Overall Assessment: BI-RADS category 1: Negative. Recommendation: Annual mammography is recommended. Assessment BIRADS: 1-Negative Recommendation: Normal interval follow-up Dictated by: ELIZABETH RIVERA Electronically signed by: ELIZABETH RIVERA 03/08/2008 13:36 Transcribed: 03/08/2008 09:48 AMK May Esparza MD MAMMO ORDERABLES Final Result documented in this encounter Visit Diagnoses Diagnosis Other screening mammogram documented in this encounter Care Teams Mine Captain Relationship Specialty [place] [address] [facility] [address] [place] [address] PCP - General Family Practice 05/12/21 documented as of this encounter
--- OUTSIDE RECORDS SUMMARY | 2024-09-02 17:08 | XMS_ITS | Clinical Summary ---
Author Organization [facility] [address] Address [address] [place] [address] Care Team Providers Care Retail Customer Service Specialist Name Role Phone Amy Nickerson DO Primary Care Provider [phone] Allergies Active Allergy Reactions Criticality Noted Date Comments Lansoprazole Other (See comments) Low 03/28/2023 Hair loss Medications meloxicam (MOBIC) 15 mg tablet Take 1 tablet (15 mg total) by mouth daily 4 Active cetirizine (ZyrTEC) 10 mg tablet Take 1 tablet (10 mg total) by mouth daily Active albuterol HFA (PROVENTIL HFA,VENTOLIN HFA,PROAIR HFA) 90 mcg/actuation inhaler Inhale 2 puffs every 6 (six) hours as needed for wheezing Active predniSONE (DELTASONE) 10 mg tabletIndication s:Acute pharyngitis, unspecified etiology 2 tablets twice daily for 5 days, then 2 tablets daily for 3 days, then 1 tablet daily for 3 days. 29 tablet 4 Active Active Problems No known active problems Surgical History Surgery Date Site/Laterality Comments CHOLECYSTECTOMY Medical History Medical History Date Comments Allergic rhinitis Sore throat Dysphagia Ear problems Family History Medical History Relation Name Comments Diabetes Mother Hypertension Mother Relation Name Status Comments Mother Social History Tobacco Use Types Packs/Day Years Used Date Smoking Tobacco: Never Smokeless Tobacco: Never Tobacco Cessation:Counseling Given: Not Answered AUDIT-C Answer Date Recorded Q1: How often do you have a drink containing alc ohol? 2-4 times a month 03/28/2023 Q2: How many drinks containi ng alcohol do you have on a typical day when you are drinking? 1 or 2 03/28/2023 Frequency of Binge Drinking Not on file 03/14 Personal Safety Answer Date Recorded Getting School Help Needed Not on file 03/27 Comments Unknown Sex and Gender Information Value Date Recorded Sex Assigned at Not on file Legal Sex Female 11:06 AM CDT Gender Identity Not on file Sexual Orientation Not on file Obstetrics History Last Filed Vital Signs Vital Sign Reading Time Taken Comments Blood Pressure - - Pulse - - Temperature - - Respiratory Rate 20 03/28/2023 1:33 PM MANAGER MISSION Oxygen Saturation - - Inhaled Oxygen Concentration - - Weight 133.8 kg (295 lb) 03/28/2023 1:33 PM MANAGER MISSION Height 168.9 cm (5' 6.5) 03/28/2023 1:33 PM MANAGER M[place]ION Body Mass Index 46.9 03/28/2023 1:33 PM MANAGER MISSION Plan of Treatment Health Maintenance Due Date Last Done Comments Breast Cancer Screening-Mammogram 1960 Cervical Cancer Screening 1960 Colon Cancer Screening-Colonoscopy 1960 Depression Screening 1960 Hepatitis C Screening 1960 DTaP/Tdap/Td Vaccine (1 - Tdap) 05/10/1971 Hepatitis B Screening 1978 Regular Well Visit/Exam 18-64 1978 Zoster Vaccine (1 of 2) 2010 Influenza Vaccine (Season Ended) 2024 Pneumococcal vaccine <65 Aged Out No longer eligible based on patient's age to complete this topic Insurance Care Teams Retail Customer Service Specialist Relationship Specialty [place] [address] [address] PCP - General Family Medicine 03/27/23
--- OUTSIDE RECORDS SUMMARY | 2024-09-02 17:08 | XMS_ITS | Referral Summary ---
Author Organization [facility] [address] [facility] Address [address] [place] [address] Care Team Providers Care Litigation Specialist Name Role Phone Amy Nickerson DO Primary Care Provider Allergies Active Allergy [...] Active Active Problems No known active problems Social History Tobacco Use Types Packs/Day Years [...] on file Sexual Orientation Not on file Last Filed Vital Signs Vital Sign Reading Time Taken Comments Blood Pressure - - Pulse - - Temperature - - Respiratory Rate 20 03/28/2023 1:33 PM COLORED LEATHER SETTER Oxygen Saturation - - Inhaled Oxygen Concentration - - Weight 133.8 kg (295 lb) 03/28/2023 1:33 PM COLORED LEATHER SETTER Height 168.9 cm (5' 6.5) 03/28/2023 1:33 PM COLORED LEATHER SETTER Body Mass Index 46.9 03/28/2023 1:33 PM COLORED LEATHER SETTER Plan of Treatment Not on file Insurance Care Teams Litigation Specialist Relationship Specialty [place] [address] [address] PCP - General Family Medicine 03/27/23
--- OUTSIDE RECORDS SUMMARY | 2024-09-02 17:08 | XMS_ITS | Encounter Summary ---
Author Organization [facility] Address [address] [place] [address] Care Team Providers Care Cnc Machine Programmer Name Role Phone Tatyana Cardona DO Primary Care Provider Encounter Details Date Type Department Care Team (Latest Contact Info) Description 03/03/2007 Outpatient Historical HIS [facility] [place] [address] [address] [place] [address] Other Screening Mammogram Social History Tobacco Use Types Packs/Day Years Used Date Smoking Tobacco: Never Assessed Comments Unknown Sex and Gender Information Value Date Recorded Sex Assigned at Female 02/06/2023 4:09 PM HOSPITAL MORTICIAN Legal Sex Female 4:50 AM HOSPITAL MORTICIAN Gender Identity Female 02/06/2023 4:09 PM HOSPITAL MORTICIAN Sexual Orientation Straight 02/06/2023 4: 09 PM HOSPITAL MORTICIAN documented as of this encounter Plan of Treatment Upcoming Encounters Date Type Department Care Team (Late st Contact Info) Description 02/18/2025 1:30 PM HOSPITAL MORTICIAN Appointment [facility] Family Medicine Jazz [place] [address] [place] [address] [place] [address] [place] [address] documented as of this encounter Visit Diagnoses Diagnosis Other screening mammogram documented in this encounter Care Teams Cnc Machine Programmer Relationship Specialty [place] [address] [address] PCP - General Family Practice 05/12/21 documented as of this encounter
--- OUTSIDE RECORDS SUMMARY | 2024-09-02 17:08 | XMS_ITS | Encounter Summary ---
Author Organization [facility] Address [address] [place] [address] Care Team Providers Care On Awake Counselor Name Role Phone Tatyana Cardona DO Primary Care Provider Encounter Details Date Type Department Care Team (Latest Contact Info) Description 02/06/2007 Outpatient Historical HIS [facility] [place] [address] [address] [place] [address] Other Screening Mammogram Social History Tobacco Use Types Packs/Day Years Used Date Smoking Tobacco: Never Assessed Comments Unknown Sex and Gender Information Value Date Recorded Sex Assigned at Female 02/06/2023 4:09 PM MICRO COMPUTER SPECIALIST Legal Sex Female 4:50 AM MICRO COMPUTER SPECIALIST Gender Identity Female 02/06/2023 4:09 PM MICRO COMPUTER SPECIALIST Sexual Orientation Straight 02/06/2023 4: 09 PM MICRO COMPUTER SPECIALIST documented as of this encounter Plan of Treatment Upcoming Encounters Date Type Department Care Team (Late st Contact Info) Description 02/18/2025 1:30 PM MICRO COMPUTER SPECIALIST Appointment [facility] Family Medicine Jazz Hood [address] [place] [address] [place] [address] [address] [place] [address] documented as of this encounter Visit Diagnoses Diagnosis Other screening mammogram documented in this encounter Care Teams On Awake Counselor Relationship Specialty [place] [address] [address] PCP - General Family Practice 05/12/21 documented as of this encounter
--- OUTSIDE RECORDS SUMMARY | 2024-09-02 17:08 | XMS_ITS | Encounter Summary ---
Author Organization [facility] Address [address] [place] [address] Care Team Providers Care Career Placement Services Counselor Name Role Phone Tatyana Cardona DO Primary Care Provider [phone] Encounter Details Date Type Department Care Team (Late st Contact Info) Description 04/20/2007 Orders Only [facility] Medicine [facility] [address] [facility] [address] [place] [address] [place] [address] [place] [address] Social History Tobacco Use Types Packs/Day Years Used Date Smoking Tobacco: Never Assessed Comments Unknown Sex and Gender Information Value Date Recorded Sex Assigned at Female 02/06/2023 4:09 PM COUNSELOR/ART THERAPIST Legal Sex Female 4:50 AM COUNSELOR/ART THERAPIST Gender Identity Female 02/06/2023 4:09 PM COUNSELOR/ART THERAPIST Sexual Orientation Straight 02/06/2023 4: 09 PM COUNSELOR/ART THERAPIST documented as of this encounter Progress Notes * Demetrius Moore MD - 07/17/2007 6:04 PM CDT TIME:12:04 pm PATIENT`S HOME PHONE: PATIENT`S WORK PHONE: PATIENT`S INSURANCE: [employer] Note created by: Demetrius Moore L GENERAL INFORMATION PCP: [facility] WHO CALLED: Patient called. Patient reports no known allergies. PROBLEMS: DIZZINESS:Patient complains of dizziness. The symptoms began a few hours ago. No headache, tinnitusor hearing distortion. No fever. NAUSEA: Patient complains of nausea. The symptoms began several hours ago. SECTION 1: DOCTOR`S RESPONSE: natalia 04/20/07 at 12:06 pm MEDICATIONS: Call in to Pharmacy MECLIZINE HCL ORAL TABLET 25 MG, 1 Three Times A Day, As Needed, 30 Dispensed, status: NEW PRESCRIPTION, 04/20/2007. Spoke with patient and instructed patient appropriately. Instruct patient to call if symptoms persist. Electronically Signed by: Demetrius Moore MD on Friday, April 20, 2007 documented in this encounter Plan of Treatment Upcoming Encounters Date Type Department Care Team (Late st Contact Info) Description 02/18/2025 1:30 PM COUNSELOR/ART THERAPIST Appointment [facility] Medicine [place] [address] [facility] [address] [place] [address] [place] [address] [address] [facility] [address] [place] [address] documented as of this encounter Visit Diagnoses Not on filedocumented in this encounter Care Teams Career Placement Services Counselor Relationship Specialty [place] [address] [address] [facility] [address] [place] [address] PCP - General Family Practice 05/12/21 documented as of this encounter
--- OUTSIDE RECORDS SUMMARY | 2024-09-02 17:08 | XMS_ITS | Encounter Summary ---
Author Organization [facility] Address [address] [place] [address] Care Team Providers Care Customer Development Representative Name Role Phone Tatyana Cardona DO Primary Care Provider Encounter Details Date Type Department Care Team (Late st Contact Info) Description 02/17/2007 Orders Only [facility] Family Medicine [facility] [address] [facility] [address] [place] [address] Priti Mahmood MD [address] [facility] [place] [address] Social History Tobacco Use Types Packs/Day Years Used Date Smoking Tobacco: Never Assessed Comments Unknown Sex and Gender Information Value Date Recorded Sex Assigned at Female 02/06/2023 4:09 PM DIE TURNER Legal Sex Female 4:50 AM DIE TURNER Gender Identity Female 02/06/2023 4:09 PM DIE TURNER Sexual Orientation Straight 02/06/2023 4: 09 PM DIE TURNER documented as of this encounter Progress Notes * Priti Mahmood MD - 06/25/2007 5:18 PM CDT NURSE NAME: Juanita Bergeron R WEIGHT: 272lbs. BLOOD PRESSURE: 116/86. Left Arm Sitting PULSE: 80. Left Radial, Regular ALLERGIES: Allergies are as listed. TOBACCO USE: Patient does not currently use tobacco. CHIEF COMPLAINT Patient complains of chest discomfort.mercy/est HISTORY: Pt with left chest pain since 12 pm today. Pt states it achy and worse with movement. Pt has not noticed any radiation. The pain is different from the pain she usually experiences with GERD.The pain is moderate in severity, comes and goes, and no medications have been tried. CURRENT PROBLEM LIST: 278.01 OBESITY MORBID 530.81 GASTROESOPHAGEAL REFLUX (GERD) 574.20 CHOLELITHIASIS 692.9 ECZEMA 719.46 PAIN JOINT KNEE 786.2 COUGH 786.50 CHEST PAIN UNSPECIFIED V17.3 FAMILY HISTORY OF ISCHEMIC HEART DISEASE V70.0 ROUTINE GENERAL MEDICAL EXAMINATION CURRENT MEDICATION LIST: LIDEX-E EXTERNAL CREAME 0.05 %, APPLY TWICE DAILY ALBUTEROL INHALATION AEROSOL SOLUTION 90 MCG/ACT, From [facility] SINGULAIR ORAL TABLET 10 MG, one a day from [facility] NECON 1/35 (28) ORAL TABLET 1-35 MG-MCG, one per day from Dr. Garcia FLONASE NASAL SUSPENSION 50 MCG/ACT, May substitute another nasal steroid with a lower copay one puff in each nostril once a day ZYRTEC-D ORAL TABLET 12 HR 5-120 MG, one twice a day from [facility] [employer] PATANOL OPHTHALMIC SOLUTION 0.1 %, 1-2 gtt per eye BID PRN CLOBETASOL PROPIONATE EXTERNAL SOLUTION 0.05 %, as per derm FAMILY HISTORY: FATHER HAD WI IN HIS 80'S uncle with WI at age 39 SOCIAL HISTORY: TOBACCO USE: Has no significant smoking history. PHYSICAL EXAMINATION: CONSTITUTIONAL: GENERAL APPEARANCE: Healthy appearing patient in no distress. RESPIRATORY: Clear to auscultation and percussion. Normal respiratory effort. CARDIOVASCULAR: CARDIAC: Regular rhythm. No murmurs, rubs, or gallops. BREAST/CHEST: lt chest wall tenderness ASSESSMENT/PLAN: 786.50-CHEST PAIN UNSPECIFIED ASSESSMENT: reproducible, suspect musculoskeletal. LAB ORDERS: Order number: [id number] Test Ordered: STRESS THALLIUM RETURN VISIT: Patient is to return after test has been completed. Instructed to call if not improving. 02/24/07 08:13 a Electronically signed by Priti Mahmood MD. TEACHING PHYSICIAN COMMENTS: I have reviewed the resident's note and I agree with the resident's evaluation and plan. Electronically Signed by: Blaise Molina MD on Saturday, February 24, 2007 documented in this encounter Plan of Treatment Upcoming Encounters Date Type Department Care Team (Late st Contact Info) Description 02/18/2025 1:30 PM DIE TURNER Appointment [facility] Medicine [facility] [address] [address] [facility] [address] [place] [address] [place] [address] [employer] [facility] [address] [place] [address] documented as of this encounter Visit Diagnoses Not on filedocumented in this encounter Care Teams Customer Development Representative Relationship Specialty [place] [address] [address] [facility] [address] [place] [address] PCP - General Family Practice 05/12/21 documented as of this encounter
--- OUTSIDE RECORDS SUMMARY | 2024-09-02 17:08 | XMS_ITS | Encounter Summary ---
Author Organization [facility] Address [address] [place] [address] Care Team Providers Care Psychiatric Registered Nurse Name Role Phone Tatyana Cardona DO Primary Care Provider Encounter Details Date Type Department Care Team (Latest Contact Info) Description 03/31/2007 Outpatient [facility] [place] [address] [place] [address] Unspecified Chest Pain Social History Tobacco Use Types Packs/Day Years Used Date Smoking Tobacco: Never Assessed Comments Unknown Sex and Gender Information Value Date Recorded Sex Assigned at Female 02/06/2023 4:09 PM PUBLIC HEALTH ANALYST Legal Sex Female 4:50 AM PUBLIC HEALTH ANALYST Gender Identity Female 02/06/2023 4:09 PM PUBLIC HEALTH ANALYST Sexual Orientation Straight 02/06/2023 4: 09 PM PUBLIC HEALTH ANALYST documented as of this encounter Plan of Treatment Upcoming Encounters Date Type Department Care Team (Late st Contact Info) Description 02/18/2025 1:30 PM PUBLIC HEALTH ANALYST Appointment [facility] Family Medicine [place] [address] [place] [address] [place] [address] [place] [address] documented as of this encounter Visit Diagnoses Diagnosis Chest pain, unspecified documented in this encounter Care Teams Psychiatric Registered Nurse Relationship Specialty [place] [address] [address] PCP - General Family Practice 05/12/21 documented as of this encounter
--- OUTSIDE RECORDS SUMMARY | 2024-09-02 17:08 | XMS_ITS | Encounter Summary ---
Author Organization [facility] Address [address] [place] [address] Care Team Providers Care Claim Processing Specialist Name Role Phone Tatyana Cardona DO Primary Care Provider Encounter Details Date Type Department Care Team (Late st Contact Info) Description 03/17/1999 Outpatient Historical [facility] DE[facility] FAMILY MEDICINE Gallito Zepeda MD [address] [place] [address] Social History Tobacco Use Types Packs/Day Years Used Date Smoking Tobacco: Never Assessed Comments Unknown Sex and Gender Information Value Date Recorded Sex Assigned at Female 02/06/2023 4:09 PM FERRIS WHEEL OPERATOR Legal Sex Female 4:50 AM FERRIS WHEEL OPERATOR Gender Identity Female 02/06/2023 4:09 PM FERRIS WHEEL OPERATOR Sexual Orientation Straight 02/06/2023 4: 09 PM FERRIS WHEEL OPERATOR documented as of this encounter Plan of Treatment Upcoming Encounters Date Type Department Care Team (Late Contact Info) Description 02/18/2025 1:30 PM FERRIS WHEEL OPERATOR Appointment [facility] Family Medicine [place] [address] [facility] [address] [place] [address] [place] [address] [facility] [address] [place] [address] documented as of this encounter Visit Diagnoses Not on filedocumented in this encounter Care Teams Claim Processing Specialist Relationship Specialty [place] [address] [address] PCP - General Family Practice 05/12/21 documented as of this encounter
--- OUTSIDE RECORDS SUMMARY | 2024-09-02 17:08 | XMS_ITS | Encounter Summary ---
Author Organization [facility] Address [address] [place] [address] Care Team Providers Care Gasfitter Name Role Phone Tatyana Cardona DO Primary Care Provider Encounter Details Date Type Department Care Team (Late st Contact Info) Description 03/28/2007 Outpatient Historical [facility] [address] [place] [address] Chip Calvillo MD [address] [facility] [address] [place] [address] Social History Tobacco Use Types Packs/Day Years Used Date Smoking Tobacco: Never Assessed Comments Unknown Sex and Gender Information Value Date Recorded Sex Assigned at Female 02/06/2023 4:09 PM SUMO WRESTLER Legal Sex Female 4:50 AM SUMO WRESTLER Gender Identity Female 02/06/2023 4:09 PM SUMO WRESTLER Sexual Orientation Straight 02/06/2023 4: 09 PM SUMO WRESTLER documented as of this encounter Plan of Treatment Upcoming Encounters Date Type Department Care Team (Late st Contact Info) Description 02/18/2025 1:30 PM SUMO WRESTLER Appointment [facility] Medicine [place] [address] [facility] [address] [place] [address] [place] [address] [facility] [address] [place] [address] documented as of this encounter Visit Diagnoses Not on filedocumented in this encounter Care Teams Gasfitter Relationship Specialty [place] [address] [facility] [address] [place] [address] PCP - General Family Practice 05/12/21 documented as of this encounter
--- OUTSIDE RECORDS SUMMARY | 2024-09-02 17:08 | XMS_ITS | Encounter Summary ---
Author Organization [facility] Address [address] [place] [address] Care Team Providers Care Coil Former Name Role Phone Tatyana Cardona DO Primary Care Provider Encounter Details Date Type Department Care Team (Late Contact Info) Description 03/28/2007 Outpatient [facility] [address] [place], [place] [id number] Teofilo Lerma MD NO ADDRESS ON FILE Social History Tobacco Use Types Packs/Day Years Used Date Smoking Tobacco: Never Assessed Comments Unknown Sex and Gender Information Value Date Recorded Sex Assigned at Female 02/06/2023 4:09 PM DRY CANS BACK TENDER Legal Sex Female 4:50 AM DRY CANS BACK TENDER Gender Identity Female 02/06/2023 4:09 PM DRY CANS BACK TENDER Sexual Orientation Straight 02/06/2023 4: 09 PM DRY CANS BACK TENDER documented as of this encounter Plan of Treatment Upcoming Encounters Date Type Department Care Team (Late Contact Info) Description 02/18/2025 1:30 PM DRY CANS BACK TENDER Appointment [facility] Family Medicine [place] [address] [facility] [address] [place] [address] [place] [address] [facility] [address] [place] [address] documented as of this encounter Visit Diagnoses Not on filedocumented in this encounter Care Teams Coil Former Relationship Specialty [place] [address] [address] PCP - General Family Practice 05/12/21 documented as of this encounter
--- OUTSIDE RECORDS SUMMARY | 2024-09-02 17:08 | XMS_ITS | Encounter Summary ---
Author Organization [facility] Address [address] [place] [address] Care Team Providers Care Sharepoint Analyst Name Role Phone Tatyana Cardona DO Primary Care Provider Encounter Details Date Type Department Care Team (Latest Contact Info) Description 03/28/2007 Outpatient Historical [facility] [place] [address] [place] [address] Unspecified Chest Pain Social History Tobacco Use Types Packs/Day Years Used Date Smoking Tobacco: Never Assessed Comments Unknown Sex and Gender Information Value Date Recorded Sex Assigned at Female 02/06/2023 4:09 PM ORDER DISPATCHER CHIEF Legal Sex Female 4:50 AM ORDER DISPATCHER CHIEF Gender Identity Female 02/06/2023 4:09 PM ORDER DISPATCHER CHIEF Sexual Orientation Straight 02/06/2023 4: 09 PM ORDER DISPATCHER CHIEF documented as of this encounter Plan of Treatment Upcoming Encounters Date Type Department Care Team (Late st Contact Info) Description 02/18/2025 1:30 PM ORDER DISPATCHER CHIEF Appointment [facility] [place] [address] [place] [address] [place] [address] [place] [address] documented as of this encounter Procedures Procedure Name Priority Date/Time Associated Diagnosis Comments ECHO STRESS TEST EXERCISE WO ECG Routine 03/28/2007 3:19 PM ORDER DISPATCHER CHIEF NM MYOCARDIAL PERFUSION EF Timed Study 03/28/2007 1:35 PM ORDER DISPATCHER CHIEF documented in this encounter Results * ECHOCARDIOGRAM STRESS TEST (03/28/2007 3:19 PM ORDER DISPATCHER CHIEF) Narrative INTERFACE SYSTEM - 03/28/2007 3:19 PM ORDER DISPATCHER CHIEF [address] [place] [address] [email or web address] Patient: Jayne Arriaga MRN: Study ID: Gender: F : 1960 Age: 46 years Race: 2 Room: Bed: Height: Study Date: March 28, 2007 Patient status: Outpatient Weight: Access. #: [id number] POC: Ordering: Jered Attending MD: Jered Admitting MD: Jered Study Conclusions: SUMMARY - Stress results : Duration of exercise was 5 min. Functional capacity was decreased (greater than 40%). Target heart rate was achieved. There was no chest pain during stress. The stress ECG was normal. IMPRESSIONS - Nuclear images reported separately. - Normal study after maximal exercise. History and indications - Detection of coronary artery disease. HISTORY - The patient is a 46 year old female. - Chest pain status: consistent with atypical angina. - Coronary artery disease risk factors: none. REST ECG - Normal sinus rhythm. Treadmill exercise testing was performed, using the Bulmaro protocol. Stress and rest echocardiographic evaluation was performed from multiple acoustic windows for evaluation of ventricular function. Stress results STRESS RESULTS - Duration of exercise was 5 min. - The patient exercised to protocol stage 2. - Maximal work rate was 7 METs. - Functional capacity was decreased (greater than 40%). - Maximal heart rate during stress was 161 bpm ( 93 % of maximal predicted heart rate). - The heart rate response to stress was normal. - There was normal resting blood pressure with an appropriate response to stress. - The rate-pressure product for the peak heart rate and blood pressure was [address]. - There was no chest pain during stress. - The stress test was terminated due to dyspnea and fatigue. - There were no stress arrhythmias or conduction abnormalities. - The stress ECG was normal. Prepared and Electronically Authenticated Chip Calvillo MD Confirmed March 28, 2007 15:03:31 Procedure Note Provider, Historical - 03/28/2007 [address] [place] [address] [email or web address] Patient: Jayne Arriaga MRN: Study ID: Gender: Jimy : 1960 Age: 46 years Race: 2 Room: Bed: Height: Study Date: March 28, 2007 Patient status: Outpatient Weight: Access. #: [id number] POC: Ordering: Jered Attending MD: Jered Admitting MD: Jered Study Conclusions: SUMMARY - Stress results : Duration of exercise was 5 min. Functional capacitywas decreased (greater than 40%). Target heart rate was achieved. There was no chest pain during stress. The stress ECG was normal. IMPRESSIONS - Nuclear images reported separately. - Normal study after maximal exercise. History and indications - Detection of coronary artery disease. HISTORY - The patient is a 46 year old female. - Chest pain status: consistent with atypical angina. - Coronary artery disease risk factors: none. REST ECG - Normal sinus rhythm. Treadmill exercise testing was performed, using the Bulmaro protocol.Stress and rest echocardiographic evaluation was performed from multipleacoustic windows for evaluation of ventricular function. Stress results STRESS RESULTS - Duration of exercise was 5 min. - The patient exercised to protocol stage 2. - Maximal work rate was 7 METs. - Functional capacity was decreased (greater than 40%). - Maximal heart rate during stress was 161 bpm ( 93 % of maximalpredicted heart rate). - The heart rate response to stress was normal. - There was normal resting blood pressure with an appropriate responseto stress. - The rate-pressure product for the peak heart rate and blood pressurewas 05854. - There was no chest pain during stress. - The stress test was terminated due to dyspnea and fatigue. - There were no stress arrhythmias or conduction abnormalities. - The stress ECG was normal. Prepared and Electronically Authenticated Chip Calvillo MD Confirmed March 28, 2007 15:03:31 Ina Cheng MD ORDERABLES Final Result Performing Organization Address City/State/[facility] Co de Phone Number INTERFACE SYSTEM Refer to clinic/hospital department * NM MYOCARDIAL PERFUSION EF (03/28/2007 1:35 PM ORDER DISPATCHER CHIEF) 03/28/2007 1:35 PM ORDER DISPATCHER CHIEF Narrative INTERFACE SYSTEM - 03/31/2007 5:53 PM ORDER DISPATCHER CHIEF [address] [address] Admit Date: 03/28/2007 JAYNE ARRIAGA Sex: F Admit Prov: INA CHENG Date: 1960 Primary Care Prov: FREYA BOLES Rianna CMRN: [id number] Room: [facility] SSN: [id number] IMAGING SERVICES Ordering Prov: N/A Accession Number: [id number] Interpretation Date of Procedure: 03/31/2007 Procedure Type: Two day Myoview Exercise Stress Test Clinical Indication:This 46 year old female was undergoing an evaluation for chest pain on the left breast.. Medications: singular, Zyrtec, albuterol Exercise Stress Procedure: The patient exercised according to the Bulmaro protocol completing 5 minutes and one seconds, achieving an estimated workload of 7 METS. The heart rate was 82 bpm at baseline and increased to 161 bpm at peak exercise, which was 93 % of the maximum predicted heart rate. The blood pressure was 118 / 76 at baseline and 132 / 74 at peak exercise, demonstrating a normal response to exercise. The patient developed fatigue during the procedure. The baseline electrocardiogram showed normal baseline ST-T waves.. The stress electrocardiogram showed no significant ST segment shift or arrhythmias.. The electrocardiogram changes show a normal response to exercise. Nuclear Imaging Protocol: Myocardial perfusion imaging was performed at rest approximately 60 minutes following the intravenous injection of 32.435 mCi TC99m Myoview. At peak exercise, the patient was injected intravenously with 32.2 mCi TC99m Myoview and exercise was continued for 2 minute(s). Gated post - stress tomographic imaging was performed approximately 30 minutes later in same manner. SPECT reconstruction was performed in the short, vertical long and horizontal axis views in both resting and gated image sets. Findings: Gated spect examination reveals normal ventricle size and systolic function. Stress imaging reveals a large area of moderately decreased radiopharmaceutical uptake involving the entire anterior wall from base to apex .Impression:This reverses on rest imaging. Review of the Rotating planar images suggest that the breast is in the positions of the rest and stress imaging sets. Thus this defect may be secondary to shifting breast attenuation artifact but ischemia cannot be definitively excluded. 1) Stress EKG response was negative with fair exercise capacity 2) The overall quality of the study is fair. 3) The myocardial perfusion scan is normal with evidence for a large area of moderate ischemia involving the inferior wall. As noted above-this may represent shifting breast attenuation artifact but ischemia cannot be definitively excluded. 4) Left ventricular size is normal with normal systolic thickening with normal systolic function. 5) No previous study was available for comparison. Recommendations: Clinical correlation is recommended. . Dictated by: TEOFILO COYLE 03/31/2007 17:46 Electronically signed by: TEOFILO COYLE 03/31/2007 17:53 Procedure Note Teofilo Coyle - 03/31/2007 [facility] [place] [address] [place], [place] [address] Admit Date: 03/28/2007 JAYNE ARRIAGA Sex: F Admit Prov: INA CHENG Date: 1960 Primary Care Prov: FREYA BOLES CMRN: [id number] Room: [facility] SSN: [id number] IMAGING SERVICES Ordering Prov: N/A Interpretation Date of Procedure: 03/31/2007 Procedure Type: Two day Myoview Exercise Stress Test Clinical Indication:This 46 year old female was undergoing anevaluation for chest pain on the left breast.. Medications: singular, Zyrtec, albuterol Exercise Stress Procedure: The patient exercised according to the Bulmaro protocol completing 5minutes and one seconds, achieving an estimated workload of 7 METS. The heart rate was 82 bpmat baseline and increased to 161 bpm at peak exercise, which was 93 % ofthe maximum predicted heart rate. The blood pressure was 118 / 76 atbaseline and 132 / 74 at peak exercise, demonstrating a normal response to exercise. The patient developed fatigue during the procedure. The baseline electrocardiogram showed normal baseline ST-T waves..The stress electrocardiogram showed no significant ST segment shift or arrhythmias.. The electrocardiogram changes show a normal responseto exercise. Nuclear Imaging Protocol: Myocardial perfusion imaging was performed at rest approximately 60minutes following the intravenous injection of 32.435 mCi TC99m Myoview. Atpeak exercise, the patient was injected intravenously with 32.2 iJvWD80f Myoview and exercise was continued for 2 minute(s). Gated post -stress tomographic imaging was performed approximately 30 minutes later insame manner. SPECT reconstruction was performed in the short, verticallong and horizontal axis views in both resting and gated image sets. Findings: Gated spect examination reveals normal ventricle size and systolic function. Stress imaging reveals a large area of moderatelydecreased radiopharmaceutical uptake involving the entire anterior wall frombase to apex .Impression:This reverses on rest imaging. Review of theRotating planar images suggest that the breast is in the positions of the restand stress imaging sets. Thus this defect may be secondary to shiftingbreast attenuation artifact but ischemia cannot be definitively excluded. 1) Stress EKG response was negative with fair exercise capacity 2) The overall quality of the study is fair. 3) The myocardial perfusion scan is normal with evidence for a largearea of moderate ischemia involving the inferior wall. As noted above-thismay represent shifting breast attenuation artifact but ischemia cannotbe definitively excluded. 4) Left ventricular size is normal with normal systolic thickeningwith normal systolic function. 5) No previous study was available for comparison. Recommendations: Clinical correlation is recommended. . Dictated by: TEOFILO COYLE 03/31/2007 17:46 Electronically signed by: TEOFILO COYLE 03/31/2007 17:53 Ina Cheng MD [place] ORDERABLES Final Result INTERFACE SYSTEM Refer to clinic/hospital department documented in this encounter Visit Diagnoses Diagnosis Chest pain, unspecified documented in this encounter Care Teams Sharepoint Analyst Relationship Specialty [place] [address] [facility] [address] [place] [address] PCP - General Family Practice 05/12/21 documented as of this encounter
--- OUTSIDE RECORDS SUMMARY | 2024-09-02 17:08 | XMS_ITS | Continuity of Care Document ---
Author Name [facility] Organization [facility] Care Team Providers Care Adjunct Nursing Faculty Name Role Phone [facility] Unavailable Unavailable Problems Combined list of problems from Department of [facility] and [facility] facilities. It does not include entries that were removed or entered in error. Problem Status Onset Date Problem Type Date of Resolution Comments Source CONJUNCTIVITIS CHRONIC ALLERGIC Active Condition DoD visit for: administrative purpose Inactive Condition Do D visit for: follow-up exam Inactive Condition [facility] CONJUNCTIVITIS Inactive Condition [facility] Preventive Medicine Estab Patient Checkup Adult 40-64 Inactive Condition [facility] ALLERGIC RHINITIS Active Condition [facility] REFRACTIVE ERROR - MYOPIA Active Condition [facility] ASTIGMATISM Active Condition [facility] PRESBYOPIA Active Condition [facility] NORMAL ROUTINE OPHTHALMOLOGICAL EXAM Inactive Condition [facility] CONJUNCTIVITIS ACUTE FOLLICULAR Inactive Condition [facility] EPISCLERITIS Active Condition [facility] Allergies, Adverse Reactions, Alerts Combined list of allergies from Department of [facility] and [facility] facilities. It does not include entries that were removed or entered in error. Substance Category Reaction Severity Reaction type Status Date Reported Comments Source PREVACID (LANSOPRAZO LE) Drug allergy (disorder) Hair Loss active 08/11/[address] [place] [address] Dale [facility] Encounters Combined list of: 1) Encounters from Department of Veterans Affairs facilities going backup to the last 18 months, not all MD inpatient encounters are included; 2) Encounters from the Department of [facility] facilities going backup to 280 months. Location Location Details Encounter Type Encounter Number Reason For Visit Attending Provider ADM Date DC Date Status Disposition Source [address] [place] [address] Dale [facility]Sco tt [facility] Team 3) OUTPATIENT [id number] redness and itching in right eye [phone] DAYTON CARIAS 08/11 Released w/o Limitations [address] [place] [address] Dale [facility]S cott [facility] Team 3) [address] [place] [address] Dale [facility]Opt ometry) OUTPATIENT [id number] Dr.Scho thompson pt/ Episcle OLINDA Griffith 08/12 Released w/o Limitations [address] [place] [address] Dale [facility]O ptometr y) [address] [place] [address] [employer] ([facility]Opt ometry) OUTPATIENT [id number] routine exam and conjunc tivitis f/u OLINDA SMITH 08/20 Released w/o Limitations [address] [place] [address] [employer] ([facility])(O ptometr y) [address] [place] [address] [employer] ([facility])([facility] Team 3) OUTPATIENT [id number] headach e/sweat s - [id number] DAYTON CARIAS 09/01 Released w/o Limitations [address] [place] [address] [employer] [facility]S [facility] Team 3) [address] [place] [address] Dale B [facility])(Fam yumiko Med Tm B Non-AD BCC) OUTPATIENT [id number] left eye red, itchy, with drainag e MICHAELA WYNN 09/10 Released w/o Limitations [address] [place] [address] Dale B [facility])(F amily Med Tm B Non-AD BCC) [address] [place], [place] [address]B [facility])([facility] Team 3) OUTPATIENT [id number] follow up lab results . DAYTON CARIAS 09/15 Released w/o Limitations [address] [place] [address] [employer] [facility])([facility] Team 3) [address] [place] [address] Dale B [facility])([facility] Team 3) TELE CONSULT [id number] Notes Entered by: DAYTON CARIAS 15 Sep 2012 1635 ------- ------- ------- ------- -- lab results BRENDAN COOK 09/[address] [place] [address] Dale B [facility])([facility] Team 3) [address] [place] [address] Dale B [facility])(Opt ometry) OUTPATIENT [id number] red eye os OLINDA SMITH 09/16 Released w/o Limitations [address] [place] [address] [employer] ([facility])(O ptometr y) Procedures Combined list of: 1) Procedures from Department of [facility] Affairs facilities [facility], not all VA non-surgical procedures are included; 2) All procedures from the Department of Defense facilities. Procedure Procedure Type Code Date Perfomer Comments Sourc e OPHTHALMOLOGICAL SERVICES: MEDICAL EXAMINATION AND EVALUATION, WITH INITIATION OR CONTINUATION OF DIAGNOSTIC AND TREATMENT PROGRAM; INTERMEDIATE, ESTABLISHED PATIENT 3 [facility] TELE ASSESS & MGT SRV PROV QUAL NONPHYS HLTH CARE PRO TO EST PAT,PARENT,GUARD NOT ORIG REL ASSESS & MGT SRV PROV W/IN PREV 7 DAYS NOR LEAD ASSESS & MGT SRV/PX W/IN NXT 24 HR/SOON APT;5-10 MIN MED DIS 3 [facility] DETERMINATION OF REFRACTIVE STATE 3 [facility] OPHTHALMOLOGICAL SERVICES: MEDICAL EXAMINATION AND EVALUATION WITH INITIATION OF DIAGNOSTIC AND TREATMENT PROGRAM; INTERMEDIATE, NEW PATIENT 3 [facility] Ophthalmological Prior Patient Start Intermediate Level Care Ophthalmological Prior Patient Start Intermediate Level Care [id number] OLINDA SMITH [facility] Non-Physician Phone Call To Patient/Provider Brief (5-10min) Non-Physician Phone Call To Patient/Provider Brief (5-10min) [phone] BRENDAN COOK [facility] Determination Of Refractive State Determination Of Refractive State [phone] 3 OLINDA SMITH [facility] Ophthalmological Prior Patient Start Comprehensive Care Ophthalmological Prior Patient Start Comprehensive Care [phone] 3 OLINDA SMITH [facility] Ophthalmological New Patient Start Intermediate Level Care Ophthalmological New Patient Start Intermediate Level Care [phone] 3 OLINDA SMITH [facility] Social History Combined list of available smoking, tobacco, and other social history from Department of Defense and Veterans Affairs facilities. Social History Type Response Date Comment [facility] This section is an empty social history section. [employer]
[2024-09-02 17:45] LABS: Alanine Aminotransferase 16 U/L (6-35); Aspartate Amino Transferase 51 U/L (14-36)
== END 2024-09-02 17:01 | disposition home or self-care (01) ==
PROVIDERS: Visit Provider Podiatrist Foot & Ankle Surgery
DX: B35.1 Tinea unguium (principal)
CPT/HCPCS: 36415; 84450; 84460